=== PATIENT | male | born 1955 | race Caucasian/White ===

== ENCOUNTER 2023-06-09 11:37 | Outpatient (CLI) | payer MEDICARE, SELFPAY ==
--- NOTE | 2023-06-09 12:29 | ECG_ITS ---
Measurements Intervals [place] Rate: 64 P: 96 VA: 243 QRS: -26 QRSD: 100 T: 32 QT: 385 QTc: 398 Interpretive Statements SINUS RHYTHM WITH SINUS ARRHYTHMIA WITH FIRST DEGREE AV BLOCK BORDERLINE LEFT AXIS DEVIATION [QRS AXIS < -20] BORDERLINE ECG NO PREVIOUS ECG AVAILABLE FOR COMPARISON Electronically Signed On 06-09-2023 15:23:51 SCREENING TECHNICIAN by Cordell Perkins M.D.
[2023-06-09 13:04] LABS: Basophils Percent Auto 0.6 % (0.2-1.2); Eosinophils Absolute Auto 0.2 K/mm3 (0-0.3); Eosinophils Percent Auto 3.8 % (0-4.4); Hematocrit 43.7 % (42.0-52.0); Hemoglobin 14.7 g/dL (14.0-18.0); Immature Granulocyte Absolute 0.02 K/mm3 (0.00-0.031); Immature Granulocyte Percent A 0.3 % (0-0.5); Lymphocytes Absolute Auto 1.04 K/mm3 (0.9-3.2); Lymphocytes Percent Auto 16.4 % (18.3-44.2); Mean Corpuscular HGB Conc 33.6 g/dl (32-36); Mean Corpuscular Hemoglobin 31.6 pg (26-34); Mean Platelet Volume 10.6 fl (7.4-10.4); Monocytes Absolute Auto 0.4 K/mm3 (0.1-0.6); Monocytes Percent Auto 6.2 % (2.6-8.5); Neutrophils Absolute Auto 4.6 K/mm3 (1.3-6.7); Neutrophils Percent Auto 72.7 % (45.5-73.1); Platelet Count Result 229 k/mm3 (150-375); Red Blood Count 4.65 M/mm3 (4.6-6.20); Red Cell Distribution Width 12.7 % (11.5-14.5); White Blood Count 6.3 K/mm3 (4.5-10.0)
[2023-06-09 13:13] LABS: Urine Cotinine NEGATIVE
[2023-06-09 13:15] LABS: Estimated Glomerular Filt Rate > 60; Glucose 124 mg/dL (65-110)
[2023-06-09 13:33] LABS: Hemoglobin A1C 5.8 % (<5.7)
== END 2023-06-09 11:38 | disposition home or self-care (01) ==
LOC: ANHSURGERY 11:45
PROVIDERS: Visit Provider Orthopaedic Surgery
DX: Z01.818 Encounter for other preprocedural examination (principal); M16.11 Unilateral primary osteoarthritis, right hip; I44.0 Atrioventricular block, first degree; R93.1 Abnormal findings on diagnostic imaging of heart and coronary circulation
CPT/HCPCS: 80307; 82040; 82565; 82947; 83036; 85025; 86850; 86900; 86901; 87081; 93005

== ENCOUNTER 2023-06-22 01:01 | Day surgery (SDC) | payer MEDICARE, SELFPAY ==
[2023-06-09 11:47] VITALS: BP 150/88; PULSE 66; RESP 20; TEMP 36.9; O2SAT 98; BMI 29.8
--- NOTE | 2023-06-09 11:47 | PC.NURSE ---
PRE-OP INSTRUCTIONS, PLEASE READ CAREFULLY Report to the Outpatient Waiting Room, entrance under the green pavilion located off [facility], at time _0800_ on date _06/22/23_. Planned Procedure Time: _1000_. PACK A SMALL OVERNIGHT BAG AND LEAVE IN THE CAR ALONG WITH YOUR WALKER Time changes happen often and if your time is changed the preop area will call you the afternoon before. - You and your visitor will be asked to self-screen and do not enter if you have any COVID symptoms. - A mask is optional within the hospital at this time. -VISITING HOURS 8AM-8PM Patients may have clear liquids (water, carbonated beverages, clear teas, apple juice) until 3 hours prior to surgery (0700 AM) with a maximum of 20 ounces. - No food from midnight until time of surgery Take the following medications with a SIP of water the morning of surgery: __NONE___ DO NOT STOP ANY OF YOUR OTHER PRESCRIPTION MEDICATIONS PRIOR TO SURGERY ?EXCEPT THE FOLLOWING Medications to discontinue per physician ____NONE____, Date to take last dose Please no make-up, nail mosotho, hairspray, perfume, deodorant, or body powder the day of surgery. No jewelry (including any body piercings) or valuables the day of surgery, leave them at home. Please take a shower or bath the night before, or the morning of, surgery with an antibacterial soap. Wear comfortable, loose fitting clothing. - Jewelry must be removed prior to entering the operating room. Rings and piercings that are not removed may be cut off. - The hospital will not accept responsibility for valuables. - Please leave all valuables, including medications, at home the day of surgery. If you are going home after surgery, a licensed solid waste truck driver must drive you home. - NO public transportation without another adult if you receive anesthesia. - We recommend that an adult stay with you for 24 hours following discharge. - We also recommend that you do not drive, make important decision, drink alcoholic beverages, or take any drugs that were not prescribed by your health care provider for at least 24 hours after your discharge time. Follow any additional instructions given to you from your surgeon. If you or anyone in your household have experienced Covid symptoms in the past week, please notify your surgeon or the nurse liaison at the phone number below for possible testing. Instructions given to _PATIENT_and asked if any additional questions and then verbalized understanding. Patient advised to call surgeon office or pre surgery nurse liaison [phone] if any additional questions.
--- NOTE | 2023-06-20 13:32 | P.HP_ITS ---
H&P: HPI History of Present Illness Date/Time: 06/20/23 13:32 Chief Complaint: Patient's hip pain right. He would like to proceed with a right hip arthroplasty. Narrative: Patient has mild arthritis of his right hip. He has failed conservative treatment today. He has had both knees done by me previously and has done well with them. He has a hard time getting around at this point. Walks with an antalgic gait. Review of Systems Musculoskeletal: Musculoskeletal: Reports arthralgias and Reports joint sw [facility] Surgical History Surgical History History of hernia repair History of knee replacement bilateral- Dr Torres History of rotator cuff surgery right x2 left History of surgery on lower extremity quad muscle repair- bilateral Social History Social History (Updated 05/22/23 @ 09:29 by Kari Stringer [facility]) Smoking status: Never smoker Second hand tobacco smoke exposure: No Additional smoking assessment comments: PT DENEIS ALL FORMS OF TOBACCO USE Alcohol intake: current Drinks per week: 3 Alcohol use details: occasionally Substance use: never Substance use type: does not use Lack of Transportation: No Lack of Food: Never True Current Housing: I Have Housing Concerned About Future Housing: No Difficulty Paying Gas/Electric Bills: No Difficulty Paying for Meds: No Currently Unemployed: Decline to Answer Education: Bachelor's Degree Difficulty w/ Childcare or Family Care: No Living arrangements: with family Occupation/Education: retired Spiritual care concerns: No Meds Home Medications and Allergies Home Medications Medication Instructions Recorded Confirmed Type rivaroxaban 10 mg tablet (Xarelto) 10 mg PO DAILY PE prophylaxis s/p 06/20/23 Rx joint replacement surgery #14 tabs Allergies Allergy/AdvReac Type Severity Reaction Status Date / Time amoxicillin [From Amoxil] AdvReac Unknown upset Verified 06/09/23 12:01 stomach Exam Narrative: On exam he has internal rotation of his hips 0 external rotation about 30 he has got a positive Stinchfield test grinding crepitus and pain with manipulation. He walks with an antalgic gait. Neurologically he is grossly intact. He has well-healed surgical scars on both knees. Eyes: General: appearance normal, both eyes and all related structures Neck: Neck: supple Resp: Effort & Inspection: normal respiratory effort Cardio: Rate: regular rate Rhythm: regular rhythm Assessment and Plan Assessment and plan (1) Osteoarthritis of right hip: Code(s): M16.11 - Unilateral primary osteoarthritis, right hip Status: Acute Assessment and Plan: Patient has arthritis right greater than left hip. He has had previous knee replacements done, which have donee well for him. He initially came in with question painful right knee, but the pain was really was from his hip. He has [id number] arthritis of his hip and has failed conservative treatment. He would like to proceed with hip replacement surgery I discussed this with him at length risks benefits limitations and alternatives in detail. Will proceed per his request.
[2023-06-22] VITALS (19 sets, daily range): BP systolic 97–153; BP diastolic 50–81; PULSE 65–88; RESP 12–21; TEMP 36.5–36.9; O2SAT 94–100
--- NOTE | ~2023-06-22 | XR_ITS ---
EXAMINATION: XR surgery orthopedic DATE: 06/22/2023 10:20 INDICATION: Intraoperative evaluation during right total hip arthroplasty TECHNIQUE: Frontal view of the right hip was obtained. COMPARISON: 05/22/2023 FINDINGS: Intraoperative image during a right total hip arthroplasty demonstrate placement of an acetabular com ponent which appears in near anatomic alignment on the single image provided. A femoral broach is in place on the initial image with the proximal tip centered over the acetabular component. This been r eplaced with a noncemented femoral component on the subsequent images with the arthroplasty appearing in near anatomic alignment. The acetabular component is affixed with at least 2 screws. Portions of the pelvis are obscured by a bolster. No fractures in the visualized bones. Expected lucent soft tiss ue gas at the operative bed. Moderate osteoarthritis at the contralateral left hip. IMPRESSION: 1. Expected appearance during right total hip arthroplasty. Reviewed, dictated and finalized at location A. ENT REPRESENTATIVE
--- NOTE | 2023-06-22 06:57 | WPDHPUPDATE1 ---
History and Physical Update Update Date/Time: 06/22/23 06:57 History and Physical has been reviewed, including an updated exam of the patient. There are NO changes in the patient's condition. Risks, benefits, and alternatives have been discussed and questions answered. Patient agrees to proceed with procedure.
[2023-06-22] MEDS: ACETAMINOPHEN 500 MG TABLET 1000 MG PO (07:51)
--- NOTE | 2023-06-22 08:05 | WPDANESEPPF ---
Anes - Initial Pre Proc Eval Procedure: Operation Date: 06/22/23 10:00 Proposed Procedures p Right Total Hip Arthroplasty - Anshu Torres MD Date/Time: 06/22/23 08:05 Surgeon: Anshu Torres MD Pre Op Diagnosis: right hip OA Patient Data Age: 68 Gender: M Height: 1.95 m Weight: 113.4 kg Last Vital Signs Temp 36.9 C 06/09/23 11:47 Pulse 66 06/09/23 11:47 Resp 20 06/09/23 11:47 BP 150/88 H 06/09/23 11:47 Pulse Ox 98 06/09/23 11:47 O2 Del Method Room Air 06/09/23 11:47 Allergies Allergy/AdvReac Type Severity Reaction Status Date / Time amoxicillin [From Amoxil] AdvReac Unknown upset Verified 06/09/23 12:01 stomach Home Medications Medication Instructions Recorded Confirmed Type rivaroxaban 10 mg tablet (Xarelto) 10 mg PO DAILY PE prophylaxis s/p 06/20/23 Rx joint replacement surgery #14 tabs Patient hx anesthesia problems: none Family hx anesthesia problems: none Results Review: All pre-operative results and documents have been reviewed as part of the pre-operative evaluation. [facility] Past Medical History Medical History (Updated 06/22/23 @ 08:05 by Frank Paiz MD) TI (obstructive sleep apnea) Overweight Surgical History Surgical History History of hernia repair History of knee replacement bilateral- Dr Torres History of rotator cuff surgery right x2 left History of surgery on lower extremity quad muscle repair- bilateral Social History Social History Smoking status: Never smoker Second hand tobacco smoke exposure: No Additional smoking assessment comments: PT DENEIS ALL FORMS OF TOBACCO USE Alcohol intake: current Drinks per week: 3 Alcohol use details: occasionally Substance use: never Substance use type: does not use Lack of Transportation: No Lack of Food: Never True Current Housing: I Have Housing Concerned About Future Housing: No Difficulty Paying Gas/Electric Bills: No Difficulty Paying for Meds: No Currently Unemployed: Decline to Answer Education: Bachelor's Degree Difficulty w/ Childcare or Family Care: No Living arrangements: with family Occupation/Education: retired Spiritual care concerns: No Anes - Eval Final PreProcedure Day of Procedure 06/22/23 08:05 Patient weight: overweight Heart: regular rate and rhythm Lungs: clear to auscultation Airway: Mallampati scale class II Neurological: alert and oriented Last oral intake: >/= 8 hours ASA classification: III Emergent: no Anesthetic plan: proceed Anesthesia type and monitoring: general ETT and standard monitoring Results Review: All pre-operative results and documents have been reviewed as part of the pre-operative evaluation. Informed Consent: The patient's anesthetic plan and its attendant risks and benefits were discussed with the patient/family/POA. Questions were solicited and answers provided to the satisfaction of the patient/family/POA.
[2023-06-22] MEDS: LACTATED RINGERS 1,000 ML 30 ML IV CONT ×3 (08:08→13:19)
[2023-06-22] MEDS: VANCOMYCIN 1,750 MG/NS 500 ML 1,750 MG/500 ML BAG 250 MG IVPB (08:08)
[2023-06-22] MEDS: TRANEXAMIC ACID 1,000MG/ISO100 1,000 MG/100 ML BAG 200 MG IVPB (08:09)
[2023-06-22] MEDS: ceFAZolin 2 GM/D5W 50 ML 2 GM/50 ML BAG IVPB ×2 (08:21→16:59)
[2023-06-22] MEDS: BUPIVACAINE/EPINEPHRINE 0.5% 50 ML VIAL 30 ML INFILTRATE (09:08)
--- NOTE | 2023-06-22 10:15 | P.OP_ITS ---
Procedure Note - Detailed Date of Procedure 06/22/23 Pre-op Diagnosis Right Hip Osteoarthritis Post-op Diagnosis Same Procedure Performed RIGHT total hip arthroplasty Surgeon Anshu Torres MD Anesthesia General Indications Pain and Arthritis Description of Procedure Patient was brought to the operating room #8 and an anesthetic was administered. The patient was placed with the RIGHT side up and steriley prepped and draped in the usual manner. Longitudinal incision was done, dissection carried down to the fascia. A Hardinge type approach was used and the femoral head was dislocated anteriorly. Femoral head was removed a finger breath above the lesse r trochanter. The acetabulum was serially reamed to accept a 56 component. This was impacted into place and secured with 2 25mm screws. A high wall liner was placed. The femur was reamed and broached to accept a 15 component which was impacted into place. A plus 6 head and neck were placed and the hip was put through full range of motion. The hip was noted to be stable. The wounds were then closed in a layered fashion using #5 ethibond, 1 vicryl, 2-0 vicryl and pedro. Patient left the operating room in satisfactory condition. Implants Biomet Stem Brian 3 hole cup Estimated Blood Loss 600 Drains No Packing No Pathology None sent Complications No immediate complications Condition Stable Disposition PACU [facility] Billing Surgery - Charge Forward: Surgery Billing (RIGHT Total Hip)
[2023-06-22] MEDS: fentaNYL CITRATE INJ (*CRX) 100 MCG/2 ML VIAL 25 MCG IV PUSH ×8 (11:16→12:29)
[2023-06-22] MEDS: HYDROmorphone HCL INJ (*CRX) 1 MG/ML SYR 0.5 MG IV PUSH ×3 (12:38→13:05)
[2023-06-22 14:02] LABS: Hematocrit 41.5 % (42.0-52.0); Hemoglobin 13.5 g/dL (14.0-18.0)
[2023-06-22] MEDS: HYDROcodone/acetaminophen (*CRX) 5-325 MG TABLET 2 TAB PO ×2 (14:23→20:09)
[2023-06-22] MEDS: DEXTROSE 5%/0.45% SOD CHL 1,000 ML 80 ML IV CONT (14:25)
--- NOTE | 2023-06-22 15:05 | ADMGEN ---
This patient, Polo Alvarez, was admitted to [facility] Surg Room 306-01. Report received from SAMPSON Mello. Patient/family oriented to hospital policies and general routines including ID bracelet, bed and alarms, visiting hours, pain management, procedures, bathroom and other care routines, personal items, smoking policy, room service/diet, and visiting hours. Information on how to activate the Rapid Response Team has been discussed. Patient/Family are encouraged to report perceived risks to care and to ask questions if they do not understand what they are told or what they should do.
[2023-06-22] MEDS: SENNA/DOCUSATE SODIUM TABLET 2 TAB PO (16:59)
[2023-06-22] MEDS: RIVAROXABAN 10 MG TABLET PO (16:59)
[2023-06-22] MEDS: CYCLOBENZAPRINE HCL 10 MG TABLET PO (17:09)
--- NOTE | 2023-06-22 17:23 | PM.IMCN ---
Assessment and Plan Assessment and plan (1) Osteoarthritis of right hip: Code(s): M16.11 - Unilateral primary osteoarthritis, right hip Status: Acute Assessment and Plan: S/P right total hip arthroplasty on 06/22/2023, primary management through orthopedic team, anticipated discharge tomorrow 06/23. up to chair apply gel pads hip precautions in place use IS neurovasc checks - see order for intervals SCDs resume diet pain management zofran PRN for nausea monitor labs in AM - CBC and BMP bowel regimen: docusate/senna, polyethylene glycol starting Xarelto Plan Home Meds/Chronic Conditions - none Diet: Regular GI Prophylaxis: Famotidine DVT Prophylaxis: SCDs, Xarelto Lines: pIV Code Status: Full Code HPI Date of Consult Consult date: 06/22/23 Requesting Physician: Anshu Torres MD Primary Care Provider: TRAILER TECHNICIAN PHYSICIAN Consult Narrative Reason for consult: Medical Managment Narrative: Polo Alvarez is a 68 year old male who presented here for a right total hip arthroplasty. Patient has previously had bilateral knee replacements. Despite these interventions, has continue to walk with a altered gait due to right hip pain. Pain has been interfering with mobility so patient elected to move forward with surgical management. Had right total hip arthroplasty performed on 06/22/2023 by Brian BAUTISTA. no immediate postop complications identified. Did report brief period of nausea that has since resolved and is tolerating dinner. Reports mild achiness to his hip. Reports no past medical history or daily medication use. Has had previous surgeries: Hernia repair, bilateral knee replacements, rotator cuff (R x2, L x1) and quadriceps muscle repair due to a fall (initially injured 1 side and had repair, then fell 7 years later and had other side tear requiring surgical repair). No other comments or concerns at this time. Review of Systems Review of Systems: All systems reviewed & are unremarkable except as noted in HPI and below PMFSH Past Medical History Medical History TI (obstructive sleep apnea) Overweight Surgical History Surgical History History of hernia repair History of knee replacement bilateral- Dr Torres History of rotator cuff surgery right x2 left History of surgery on lower extremity quad muscle repair- bilateral Social History Social History Smoking status: Never smoker Second hand tobacco smoke exposure: No Additional smoking assessment comments: PT DENEIS ALL FORMS OF TOBACCO USE Alcohol intake: current Drinks per week: 1 Alcohol use details: occasionally Substance use: never Substance use type: does not use Do You Feel Safe in your Home?: Yes Lack of Transportation: No Lack of Food: Never True Current Housing: I Have Housing Concerned About Future Housing: No Difficulty Paying Gas/Electric Bills: No Difficulty Paying for Meds: No Currently Unemployed: No Education: Don't Know Difficulty w/ Childcare or Family Care: No Living arrangements: with family Occupation/Education: retired Spiritual care concerns: No Meds Home Medications and Allergies Home Medications Medication Instructions Recorded Confirmed Type rivaroxaban 10 mg tablet (Xarelto) 10 mg PO DAILY PE prophylaxis s/p 06/20/23 Rx joint replacement surgery #14 tabs Allergies Allergy/AdvReac Type Severity Reaction Status Date / Time amoxicillin [From Amoxil] AdvReac Unknown upset Verified 06/22/23 08:12 stomach Vital Signs Vital Signs - 24 hr 06/22/23 08:12 06/22/23 10:57 06/22/23 11:10 Temperature 97.8 F 98.1 F Pulse Rate 73 78 65 Respiratory Rate 16 16 20 Blood Pressure 153/81 H 101/66 137/77 Pulse Oximetry 100 98 100 Oxygen Delivery Room Air S
[2023-06-22] MEDS: FAMOTIDINE 20 MG TABLET PO (20:09)
[2023-06-23] MEDS: CYCLOBENZAPRINE HCL 10 MG TABLET PO ×2 (00:26→08:31)
[2023-06-23] MEDS: ceFAZolin 2 GM/D5W 50 ML 2 GM/50 ML BAG IVPB ×2 (00:27→08:33)
[2023-06-23] MEDS: HYDROcodone/acetaminophen (*CRX) 5-325 MG TABLET 2 TAB PO (02:02)
[2023-06-23 06:29] LABS: Basophils Percent Auto 0.2 % (0.2-1.2); Eosinophils Percent Auto 0.2 % (0-4.4); Hematocrit 34.5 % (42.0-52.0); Hemoglobin 11.6 g/dL (14.0-18.0); Immature Granulocyte Absolute 0.04 K/mm3 (0.00-0.031); Immature Granulocyte Percent A 0.5 % (0-0.5); Lymphocytes Absolute Auto 1.14 K/mm3 (0.9-3.2); Lymphocytes Percent Auto 13.9 % (18.3-44.2); Mean Corpuscular HGB Conc 33.6 g/dl (32-36); Mean Corpuscular Hemoglobin 31.8 pg (26-34); Mean Corpuscular Volume 94.5 fl (80-100); Mean Platelet Volume 10.3 fl (7.4-10.4); Monocytes Absolute Auto 0.8 K/mm3 (0.1-0.6); Monocytes Percent Auto 9.1 % (2.6-8.5); Neutrophils Absolute Auto 6.3 K/mm3 (1.3-6.7); Neutrophils Percent Auto 76.1 % (45.5-73.1); Platelet Count Result 203 k/mm3 (150-375); Red Blood Count 3.65 M/mm3 (4.6-6.20); Red Cell Distribution Width 12.7 % (11.5-14.5); White Blood Count 8.2 K/mm3 (4.5-10.0)
[2023-06-23 06:39] LABS: Anion Gap 5 mmol/L (8-16); Blood Urea Nitrogen 15 mg/dL (9-20); Calcium 9.2 mg/dL (8.4-10.2); Carbon Dioxide 27 mmol/L (22-30); Chloride 105 mmol/L (98-107); Estimated CRCL calculation 107 ml/min; Estimated Glomerular Filt Rate > 60; Glucose 110 mg/dL (65-110); Potassium 3.7 mmol/L (3.4-5.0); Sodium 137 mmol/L (137-145)
[2023-06-23 07:55] VITALS: BP 158/68; PULSE 80; RESP 21; TEMP 36.2; O2SAT 100
--- NOTE | 2023-06-23 08:18 | WPDANESPN ---
Anes - Prog Note Post-Op Date/Time: 06/23/23 08:18 Cardiovascular status: normal Respiratory status: normal Airway patency: baseline Mental status: baseline Post-Op hydration status: normal Vital Signs: Last Vital Signs Temp 36.2 C L 06/23/23 07:55 Pulse 80 06/23/23 07:55 Resp 21 H 06/23/23 07:55 BP 158/68 H 06/23/23 07:55 Pulse Ox 100 06/23/23 07:55 O2 Del Method Room Air 06/22/23 15:50 O2 Flow Rate 8 06/22/23 11:25 Pain Score (VAS): 07/29 I/O: Intake & Output 06/22/23 06/23/23 06/23/23 23:59 07:59 15:59 Intake Total 822 700 240 Output Total 1350 900 Balance -528 -200 240 Laboratory Tests 06/23/23 05:28 06/23/23 05:28 06/22/23 06/23/23 13:56 05:28 WBC 8.2 RBC 3.65 L Hgb 13.5 L 11.6 L Hct 41.5 L 34.5 L MCV 94.5 MCH 31.8 MCHC 33.6 RDW 12.7 Plt Count 203 MPV 10.3 Immature Gran % (Auto) 0.5 Neut % (Auto) 76.1 H Lymph % (Auto) 13.9 L [place] % (Auto) 9.1 H Eos % (Auto) 0.2 Baso % (Auto) 0.2 Lymph # (Auto) 1.14 [place] # (Auto) 0.8 H Eos # (Auto) 0.0 Baso # (Auto) 0.0 Abs Immat Gran (auto) 0.04 H Absolute Neuts (auto) 6.3 Absolute Nucleated RBC 0.0 Nucleated RBC % 0.0 Sodium 137 Potassium 3.7 Chloride 105 Carbon Dioxide 27 Anion Gap 5 L BUN 15 Creatinine 0.70 Estim Creat Clear Calc 107 Estimated GFR > 60 Glucose 110 Calcium 9.2 Post-procedural complaints: none Patient Feedback: Patient satisfied with anesthetic care.
[2023-06-23] MEDS: FAMOTIDINE 20 MG TABLET PO (08:31)
[2023-06-23] MEDS: SENNA/DOCUSATE SODIUM TABLET 2 TAB PO (08:31)
[2023-06-23] MEDS: HYDROcodone/acetaminophen (*CRX) 7.5-325 MG TABLET 2 TAB PO ×2 (08:32→13:22)
[2023-06-23] MEDS: CELECOXIB 200 MG CAPSULE PO (08:32)
--- NOTE | 2023-06-23 11:19 | PM.IMCN ---
Assessment and Plan Assessment and plan (1) Osteoarthritis of right hip: Code(s): M16.11 - Unilateral primary osteoarthritis, right hip Status: Acute Assessment and Plan: S/P right total hip arthroplasty on 06/22/2023, primary management through orthopedic team, anticipated discharge tomorrow 06/23. up to chair apply gel pads hip precautions in place use IS neurovasc checks - see order for intervals SCDs resume diet pain management zofran PRN for nausea monitor labs in AM - CBC and BMP bowel regimen: docusate/senna, polyethylene glycol starting Xarelto Plan Home Meds/Chronic Conditions - none Diet: Regular GI Prophylaxis: Famotidine DVT Prophylaxis: SCDs, Xarelto Lines: pIV Code Status: Full Code HPI Date of Consult Consult date: 06/23/23 Requesting Physician: Anshu Torres MD Primary Care Provider: SEWING MACHINE BOBBIN WINDER PHYSICIAN Consult Narrative Reason for consult: Medical management Narrative: 06/23/2023: Patient reports pain well controlled but having episodes of nausea no vomiting. Patient afebrile overnight with no complaints of CP or SOB. Site clean, no erythema, swelling, or drainage pedro in place. Patient tolerating oral intake and working well with PT. Will give zofran for nausea and monitor for improvement, plan is discharge home today. Review of Systems Review of Systems: All systems reviewed & are unremarkable except as noted in HPI and below PMFSH Past Medical History Medical History TI (obstructive sleep apnea) Overweight Surgical History Surgical History History of hernia repair History of knee replacement bilateral- Dr Torres History of rotator cuff surgery right x2 left History of surgery on lower extremity quad muscle repair- bilateral Social History Social History Smoking status: Never smoker Second hand tobacco smoke exposure: No Additional smoking assessment comments: PT DENEIS ALL FORMS OF TOBACCO USE Alcohol intake: current Drinks per week: 1 Alcohol use details: occasionally Substance use: never Substance use type: does not use Do You Feel Safe in your Home?: Yes Lack of Transportation: No Lack of Food: Never True Current Housing: I Have Housing Concerned About Future Housing: No Difficulty Paying Gas/Electric Bills: No Difficulty Paying for Meds: No Currently Unemployed: No Education: Don't Know Difficulty w/ Childcare or Family Care: No Living arrangements: with family Occupation/Education: retired Spiritual care concerns: No Meds Home Medications and Allergies Home Medications Medication Instructions Recorded Confirmed Type rivaroxaban 10 mg tablet (Xarelto) 10 mg PO DAILY PE prophylaxis s/p 06/20/23 Rx joint replacement surgery #14 tabs Allergies Allergy/AdvReac Type Severity Reaction Status Date / Time amoxicillin [From Amoxil] AdvReac Unknown upset Verified 06/22/23 08:12 stomach Vital Signs Vital Signs - 24 hr 06/22/23 11:25 06/22/23 11:40 06/22/23 11:55 Temperature Pulse Rate 70 77 78 Respiratory Rate 20 18 18 Blood Pressure 125/78 133/74 142/77 H Pulse Oximetry 100 95 97 Oxygen Delivery Simple Face Mask Room Air Room Air Oxygen Flow Rate 8 06/22/23 12:10 06/22/23 12:25 06/22/23 12:40 Temperature Pulse Rate 74 76 68 Respiratory Rate 20 20 12 Blood Pressure 125/73 124/73 116/62 Pulse Oximetry 99 97 99 Oxygen Delivery Room Air Room Air Room Air Oxygen Flow Rate 06/22/23 12:55 06/22/23 13:10 06/22/23 13:25 Temperature Pulse Rate 67 85 79 Respiratory Rate 12 18 20 Blood Pressure 117/77 123/76 117/77 Pulse Oximetry 95 97 94 Oxygen Delivery Room Air Room Air Room Air Oxygen Flow Rate 06/22/23 13:35 06/22/23 13:55 06/22/23 14:10 Temperature 97.8 F
--- NOTE | 2023-06-23 11:43 | PM.IMPN ---
Progress Note: A&P Assessment and Plan (1) Osteoarthritis of right hip: Code(s): M16.11 - Unilateral primary osteoarthritis, right hip Status: Acute Plan Right total hip arthroplasty -06/22/2023/Postop day 2 -up to chair -hip precautions in place -use IS -neurovasc checks - see order for intervals -SCDs -resume diet -pain management -zofran PRN for nausea -monitor labs in AM - CBC and BMP -bowel regimen: docusate/senna, polyethylene glycol -starting Xarelto DVT Proph -PT -Dressing changes per ortho Time Spent With Patient Time with patient: 15 - 25 minutes Subjective Date/time seen: 06/23/23 11:43 Interval history: F/U medical consult for Mr. Alvarez a 68 year old male post-op day 2 or RT hip arthroplasty 06/23/2023: Patient reports pain well controlled but having episodes of nausea no vomiting. Patient afebrile overnight with no complaints of CP or SOB. Site clean, no erythema, swelling, or drainage pedro in place. Patient tolerating oral intake and working well with PT. Will give zofran for nausea and monitor for improvement, plan is discharge home today. Review of Systems Review of Systems: All systems reviewed & are unremarkable except as noted in HPI and below Exam Const: General: comfortable and no acute distress HENMT: Face/Nose/Sinus: Normal nares present Mouth: Yes moist mucous membranes Eyes: General: appearance normal, both eyes and all related structures Sclera: sclerae normal Pupils: Equal, round and reactive pupils present EOM: EOMs intact bilaterally Neck: Neck: supple Resp: Effort & Inspection: normal respiratory effort Auscultation: clear to auscultation bilaterally Cardio: Rate: regular rate Rhythm: regular rhythm GI: Auscultation: normal bowel sounds Skin: General skin exam: normal color and no rashes or lesions noted Other: Postoperative wound to right hip with dressing in place, remains clean and intact.? No drainage, underlying ecchymosis, or swelling. Neuro: Cranial nerves: Yes Equal, round and reactive pupils present Speech: normal speech Motor exam (neuro): 5/5 motor strength present throughout Sensory Exam: normal sensation Extrem: General: normal to inspection Psych: Mental Status: mental status grossly normal Affect: normal affect Objective Data Vital Signs Vital Signs: Vital Signs - 24 hr 06/22/23 11:55 06/22/23 12:10 06/22/23 12:25 Temperature Pulse Rate 78 74 76 Respiratory Rate 18 20 20 Blood Pressure 142/77 H 125/73 124/73 Pulse Oximetry 97 99 97 Oxygen Delivery Room Air Room Air Room Air 06/22/23 12:40 06/22/23 12:55 06/22/23 13:10 Temperature Pulse Rate 68 67 85 Respiratory Rate 12 12 18 Blood Pressure 116/62 117/77 123/76 Pulse Oximetry 99 95 97 Oxygen Delivery Room Air Room Air Room Air 06/22/23 13:25 06/22/23 13:35 06/22/23 13:55 Temperature 97.8 F Pulse Rate 79 76 78 Respiratory Rate 20 18 20 Blood Pressure 117/77 123/76 134/79 Pulse Oximetry 94 94 98 Oxygen Delivery Room Air Room Air 06/22/23 14:10 06/22/23 14:40 06/22/23 15:50 Temperature 97.7 F 97.7 F Pulse Rate 75 84 Respiratory Rate 20 18 Blood Pressure 121/74 141/75 H Pulse Oximetry 99 100 Oxygen Delivery Room Air 06/22/23 15:26 06/22/23 19:45 06/22/23 23:26 Temperature 97.9 F 98.4 F 97.8 F Pulse Rate 83 88 69 Respiratory Rate 18 18 21 H Blood Pressure 97/61 L 123/66 112/50 L Pulse Oximetry 100 96 100 Oxygen Delivery 06/23/23 07:55 Temperature 97.2 F L Pulse Rate 80 Respiratory Rate 21 H Blood Pressure 158/68 H Pulse Oximetry 100 Oxygen Delivery Intake/Output Intake/Output: Intake & Output 06/20/23 06/21/23 06/22/23 06/23/23 23:59 23:59 23:59 23:59 Intake Total 2744 990 Output Total 1350 900 Balance 1394 90 Meds/Results Medications: Active Medications Generic Name Dose Route Start Last Admin Trade Name Freq PRN Reason Stop Dose Admin Hydrocodone Bitart/Acetaminophen 1 tab 01
--- NOTE | 2023-06-23 13:52 | PM.PNORT ---
Progress Note: A&P Assessment and Plan (1) Osteoarthritis of right hip: Code(s): M16.11 - Unilateral primary osteoarthritis, right hip Status: Acute Assessment and Plan: Patient is status post total hip arthroplasty right. He is doing well at this point. The pain is under control. I think he can be dismissed this time. He has any changes or problems he will call. Anticipate follow-up 10 to 14 days for sutures out. (2) History of total right hip replacement: Code(s): Z96.641 - Presence of right artificial hip joint Status: Acute Subjective Subjective Date/Time Seen: 06/23/23 13:52 Post Op day: 1 Principal diagnosis: Status post right total hip arthroplasty for hip osteoarthritis Interval history: Patient is doing well overall had some issues with pain control but that is taking care of at this point. Review of Systems Musculoskeletal: Musculoskeletal: Reports arthralgias and Reports joint swelling Exam Narrative: On exam his dressings intact neurologically he is intact wiggles his toes well. Moves his hip without too much difficulty. Objective Data Vital Signs Vital Signs: Vital Signs - 24 hr 06/22/23 13:55 06/22/23 14:10 06/22/23 14:40 Temperature 97.8 F 97.7 F 97.7 F Pulse Rate 78 75 84 Respiratory Rate 20 20 18 Blood Pressure 134/79 121/74 141/75 H Pulse Oximetry 98 99 100 Oxygen Delivery 06/22/23 15:50 06/22/23 15:26 06/22/23 19:45 Temperature 97.9 F 98.4 F Pulse Rate 83 88 Respiratory Rate 18 18 Blood Pressure 97/61 L 123/66 Pulse Oximetry 100 96 Oxygen Delivery Room Air 06/22/23 23:26 06/23/23 07:55 Temperature 97.8 F 97.2 F L Pulse Rate 69 80 Respiratory Rate 21 H 21 H Blood Pressure 112/50 L 158/68 H Pulse Oximetry 100 100 Oxygen Delivery Intake/Output Intake/Output: Intake & Output 06/20/23 06/21/23 06/22/23 06/23/23 23:59 23:59 23:59 23:59 Intake Total 2744 1210 Output Total 1350 900 Balance 1394 310 Meds/Results Medications: Active Medications Generic Name Dose Route Start Last Admin Trade Name Freq PRN Reason Stop Dose Admin Hydrocodone Bitart/Acetaminophen 1 tab 06/22/23 13:41 Hydrocodone/Acetaminophen (*Crx) 5-325 Mg Tablet PO Q3H PRN Pain Rated 4-6 Hydrocodone Bitart/Acetaminophen 2 tab 06/23/23 08:07 06/23/23 13:22 Hydrocodone/Acetaminophen (*Crx) 7.5-325 Mg Tablet PO 2 tab Q3HR PRN Administration Pain Rated 7-10 Celecoxib 200 mg 06/23/23 09:00 06/23/23 08:32 Celecoxib 200 Mg Capsule PO 200 mg DAILY NIKHIL Administration Cyclobenzaprine HCl 10 mg 06/22/23 13:41 06/23/23 08:31 Cyclobenzaprine Hcl 10 Mg Tablet PO 10 mg Q8H PRN Administration Muscle Spasm Famotidine 20 mg 06/22/23 21:00 06/23/23 08:31 Famotidine 20 Mg Tablet PO 20 mg Q12HR NIKHIL Administration Naloxone HCl 0.1 mg 06/22/23 13:41 Naloxone Hcl 0.4 Mg/Ml Vial IV PUSH Q2M PRN Opiate Reversal Ondansetron HCl 4 mg 06/23/23 11:17 Ondansetron Inj 4 Mg/2 Ml Vial IV PUSH Q4H PRN Nausea And Vomiting Polyethylene Glycol 17 gm 06/23/23 09:00 06/23/23 08:41 Polyethylene Glycol 3350 17 Gm Powd.Pack PO Not Given QAM [facility] Rivaroxaban 10 mg 06/22/23 17:00 06/22/23 16:59 Rivaroxaban 10 Mg Tablet PO 10 mg DAILY@1700 [facility] Administration Senna/Docusate Sodium 2 tab 06/22/23 17:00 06/23/23 08:31 Senna/Docusate Sodium Tablet PO 2 tab BID NIKHIL Administration Radiology Results: ITS Impressions Intraoperative X-Ray 06/22/23 10:52 IMPRESSION: 1. Expected appearance during right total hip arthroplasty. Labs Labs: Laboratory Results - last 24 hr 06/22/23 06/23/23 13:56 05:28 WBC 8.2 RBC 3.65 L Hgb 13.5 L 11.6 L Hct 41.5 L 34.5 L MCV 94.5 MCH 31.8 MCHC 33.6 RDW 12.7 Plt Count 203 MPV 10.3 Immature Gran % (Auto) 0.5 Neut % (Auto) 76.1 H Lymph % (Auto) 13.9 L [place]
--- NOTE | 2023-06-23 13:54 | PM.DS ---
DS: Admitting Diagnosis Discharge Date 06/23/2022 Admitting Diagnosis Osteoarthritis right hip DS: Discharge Diagnosis Discharge Diagnosis Plan Right total hip arthroplasty for hip osteoarthritis DS: Summary Hospital Course Hospital Course: Patient underwent total hip arthroplasty on the right. He had some issues pain control which resolved now. We will dismiss him home. Time Spent with Patient Time attestation: Total time spent providing and/or coordinating discharge services: Exam Narrative: Patient can wiggle his toes. Neurologically appears intact. Dressing is intact. Const: General: comfortable Neck: Neck: supple Resp: Effort & Inspection: normal respiratory effort Cardio: Rate: regular rate Rhythm: regular rhythm DS: Data Data Completed and Pending Labs on day of discharge: Labs from last 24 hours 06/23/23 06/22/23 05:28 13:56 WBC 8.2 RBC 3.65 L Hgb 11.6 L 13.5 L Hct 34.5 L 41.5 L MCV 94.5 MCH 31.8 MCHC 33.6 RDW 12.7 Plt Count 203 MPV 10.3 Immature Gran % (Auto) 0.5 Neut % (Auto) 76.1 H Lymph % (Auto) 13.9 L [place] % (Auto) 9.1 H Eos % (Auto) 0.2 Baso % (Auto) 0.2 Lymph # (Auto) 1.14 [place] # (Auto) 0.8 H Eos # (Auto) 0.0 Baso # (Auto) 0.0 Abs Immat Gran (auto) 0.04 H Absolute Neuts (auto) 6.3 Absolute Nucleated RBC 0.0 Nucleated RBC % 0.0 Sodium 137 Potassium 3.7 Chloride 105 Carbon Dioxide 27 Anion Gap 5 L BUN 15 Creatinine 0.70 Estim Creat Clear Calc 107 Estimated GFR > 60 Glucose 110 Calcium 9.2 Discharge Plan Discharge Patient Disposition: Home Health Service Discharge Instructions: Care Coordination: Patient to have [facility] for PT/OT eval and treat, and [place] [facility]. Their phone number is [phone], if you have any questions. They will contact you to schedule their first visit. RN Please fax discharge instructions to [phone]. Dr. Anshu Torres M.D [address] [address] POST-OPERATIVE DISCHARGE INSTRUCTIONS ANTERIOR TOTAL HIP ARTHROPLASTY 1. Move toes/feet up and down every hour while awake. 2. Be up walking every hour while awake. 3. Use walker ferruler if instructed to use walker ferruler.When you are allowed to use the cane, use the cane in the opposite hand. 4. When resting, do not rest in the chair. Rather, lie on your back, with back flat, and the leg elevated above heart to minimize swelling. You may put a pillow under your head. Do not rest in a chair. Resting in the chair results in swelling in the leg. Significant swelling could indicate a blood clot and if this occurs, call the office (or go to the ER) to have a venous ultrasound performed. Its ok to sit in the chair to eat and use the toilet and to receive a guest but sitting in a chair will cause your leg to swell. so try to minimize sitting in a chair. 5. Wound Care: Apply a folded 4x4 sponge to incision and hold with crossing strips of 1 inch Transpore tape. 6. Follow weight bearing status as instructed: 7. May shower. Remove dressing before shower and reapply dressing after shower. Patient Instructions: Antibiotic Form, Rivaroxaban (By mouth), Pain Management (DC), Safe Use of Anticoagulants (DC), Total Hip Replacement (DC) Stand Alone Forms: General Discharge Information Follow-up/Referrals: Anshu Torres MD [Physician] - Discharge Medications: New hydrocodone-acetaminophen 7.5-325 mg tablet 1 tablet PO Q4H PRN (Reason: pain) Qty: 40 0RF doxycycline hyclate 100 mg tablet 100 mg PO DAILY Qty: 10 0RF cyclobenzaprine 10 mg tablet 10 mg PO HS PRN (Reason: muscle spasm) Qty: 20 0RF Continued Xarelto 10 mg tablet 10 mg PO DAILY Qty: 14 0RF Rx Instructions: take 1 tab daily x 14days beginning day after surgery.
[2023-06-23 13:55] VITALS: BP 111/53; PULSE 83; RESP 16; TEMP 36.6; O2SAT 97
== END 2023-06-23 14:50 | disposition home health service (06) ==
LOC: ANHSURGERY 07:20 → ANH3MEDSUR 13:42
PROVIDERS: Visit Provider Orthopaedic Surgery
PROC: (CPT 27130; principal; 2023-06-22 10:00)
DX: M16.11 Unilateral primary osteoarthritis, right hip (principal); Z96.653 Presence of artificial knee joint, bilateral
CPT/HCPCS: 27130; 36415; 80048; 85014; 85018; 85025; 97110; 97116; 97161; 97165; 97530; 97535; 99199; A9270; C1776; J0690; J1100; J1170; J1596; J2250; J2371; J2405; J2704; J3010; J3370; J7120

== ENCOUNTER 2024-12-16 10:53 | Outpatient (CLI) | payer MEDICARE, SELFPAY ==
--- OUTSIDE RECORDS SUMMARY | 2024-12-16 11:35 | XMS_ITS | Data Portability ---
Author Organization [facility] Francia BOWEN Address [address] [place] [address] Assessment No assessment recorded. Plan of Treatment Reminders Order Date Submit Date Provider Last Modified By Organization Details Last Modified Time Details Appointments None recorded . Lab None recorded . Referral None recorded . Procedures None recorded . Surgeries None recorded . Imaging US, doppler, venous 018 12/09/19 18 [email or web address] [facility], [address] [place] [address], [id number], 8 15:00:57 Medication Orders None recorded . Patient TargetsNo targets recorded. Patient Instructions Encounter Date Encounter Id Patient Instructions Last Modified By Organization Details Last Modified Time 12/08/2017 [id number] Patient to have venous doppler to rule out DVT. Patient to follow up with doppler. [email or web address] Not available 12/08/2017 17:32:21 Reason for Referral None Reported. Results Created Date Observation Date Name Description Value Unit Range Abnormal Flag Note LastModifiedBy Organization Detail LastModifiedTime 12/12/19 18 12/08/2017 US, doppl er, venou s No observ ation record ed. BARCODE [facility] [address] [place] [address], [address], 12/11/2017 10:28:14 Result Notes None recorded. Problems Name Problem SNOMED Code Status Onset Date Resolution Date Notes Provider Name and Address Organization Details Recorded Time Benign neoplasm of colon 67449191 Active 2014 Not Available [facility] 7 00:52:17 Headache 83007482 Active 2012 Not Available [facility] 7 00:52:17 Screening for malignant neoplasm of colon Active 2013 Not Available [facility] 7 00:52:18 Allergic rhinitis 04133970 Active 2014 Not Available [facility] 7 00:52:18 Bronchitis 98049594 Active 2014 Not Available [facility] 7 00:52:18 Acute upper respiratory infection 40231788 Active 2013 Not Available [facility] 7 00:52:18 Hyperlipidemi a screening Active 2012 Not Available [facility] 7 00:52:18 Chronic sinusitis 38453247 Active 2014 Not Available [facility] 7 00:52:18 Pneumonia 187641421 Active 2014 Not Available [facility] 7 00:52:18 Difficulty speaking Active 2014 Not Available [facility] 7 00:52:18 Cough 90323038 Active 2014 Not Available [facility] 7 00:52:18 Laboratory test Active 2013 Not Available [facility] 7 00:52:18 Rosacea 912865946 Active 2014 Not Available [facility] 7 00:52:18 Problem Notes None recorded. Procedures Surgical History Date Name Laterality Status Provider Name and Address Organization Details Recorded Time Knee Surgery completed Veda Alves [facility] 12/08/2017 16:27:00 Imaging Results None recorded. Procedure Notes None recorded. Medical Equipment None Reported. Allergies Allergen ID Allergen Name Allergen Category Reaction Reaction Severity Criticality Documentation Date Start Date Code Code System Note Provider Name and Address Organization Details Recorded Time 270195 Cipro medicatio n Not available Not available Not available 04/25/20172014 92824 3 RxNorm Not Available [facility] 7 10:20:59 172754 amoxicill in medicatio n other Not available Not available 12/08/2017 723 RxNorm stoma ch disco mfort Veda trejo [facility] 8 16:08:50 Medications Name Sig Start Date Stop Date Status Note LastModified by Organization Details LastModified Time Singulair 10 mg tablet Singulair 10 mg tablet; 1 Tablet(s) ; PO; QD; 30 days; Refills: 5; Qty: 30 [ 5 - 5]; UOM: Tablet 06/02 completed Not Available Not Available Not Available hydrocodone 5 mg-acetamin ophen 325 mg tablet 12/08 completed Not Available Not Available Not Available Medrol (Samir) 4 mg tablets in a dose pack Medrol (Samir) 4 mg tablets in a dose pack; Tablet(s) ; PO; Qty: 1; as directed; UOM: Tablet 11/14 completed Not Available Not Available Not Available Zithromax Z-Samir 250 mg tablet Zithromax Z-Samir 250 mg tablet; Tablet(s) ; PO; as directed; UOM: Tablet 12/08 completed Not Available Not Available Not Available Nexium 40 mg capsule,del ayed release Nexium 40 mg capsule,d elayed release; 1 Capsule(s ); PO; QD; 30 days; Qty: 30 [ 5 - 02/03/2015 ]; UOM: Capsule 02/03 completed Not Available Not Available Not Available Zyrtec 10 mg tablet Zyrtec 10 mg tablet; 1 Tablet(s) ; PO; QD; 30 days; Qty: 30 [ 5 - 01/03/2015 ]; UOM: Tablet 01/03 completed Not Available Not Available Not Available Aspir-Low 81 mg tablet,daniel yed release Take 1 tablet every day by oral route for 30 days. active Not Available Not Available No t Available benzonatate 100 mg capsule 12/08 completed Not Available Not Available Not Available hydrocodone 7.5 mg-acetamin ophen 325 mg tablet 12/08 completed Not Available Not Available Not Available oseltamivir 75 mg capsule 12/08 completed Not Available Not Available Not Available Cipro 500 mg tablet Cipro 500 mg tablet; 1 Tablet(s) ; PO; BID; 14 days; Qty: 28 [ 5 - 11/27/2014 ]; UOM: Tablet 11/27 completed Not Available Not Available Not Available fluticasone propionate 50 mcg/actuati on nasal spray,suspe nsion Flonase 50 mcg/actua tion nasal spray,ross pension; 2 [place]; NASAL; QHS; 30 days; Qty: 1 [ - 01/03/2015 ] 12/08 completed Not Available Not Available Not Available Phenergan VC-Codeine 6.25 mg-5 mg-10 mg/5 mL oral syrup Phenergan VC-Codein e 6.25 mg-5 mg-10 mg/5 mL syrup; 1 or 2 Teaspoon( s); PO; QID; prn 11/14 completed Not Available Not Available Not Available Flovent HFA 220 mcg/actuati on aerosol inhaler Flovent HFA 220 mcg/actua tion aerosol inhaler; 1 Puff(s); INH; BID; 14 days; Qty: 1 [ - 11/27/2014 ] 11/27 completed Not Available Not Available Not Available Metrogel 1 % topical Metrogel 1 % topical; 1 Applicati on; TOP; QD; 30 days; apply to nose [09/25/2014 - 10/24/2014] 10/24 completed Not Available Not Available Not Available Xarelto 10 mg tablet 12/08 completed Not Available Not Available Not Available Vitals Date Recorded Body weight Oxygen saturation Oxygen saturation in Arterial blood by Pulse oximetry Heart rate Body height Body mass index (BMI) Systolic blood pressure Diastolic blood pressure Provider Name and Address Organization Details Last Updated DateTime 8 248344. 12 g 97 % 97 % 89 /min 197.48 cm 30.3 kg/m2 132 mm[Hg] 74 mm[Hg] Veda Alves [place] - [facility] 8 16:12:48 Social History None recorded. Functional Status None recorded. Mental Status None recorded. Family History Nothing Reported. Medical History No medical history recorded. Past Encounters Encounter ID Performer Location Encounter Start Date Encounter Closed Date Diagnosis/Indication Diagnosis SNOMED-CT Code Diagnosis ICD10 Code Diagnosis Note [id number] Tono Escalante MD [facility] [address] [place] [address] 12/08/2017 15:42:00 12/11/2017 15:00:56 Edema of lower extremity 007448826 R60.0 Health Concerns Section Related Observation LastModified by Organization Detai ls LastModified Time None Recorded Concern Status LastModified by Organization Details LastModified Time None Recorded Advance Directives Directive None Recorded Payers Insurance Date Sequence Insurance Name Policy Number Policy Patrick Covered Member ID Patrick Member ID Guarantor Name 08/03/2018 1 [facility] [id number] Polo Alvarez [id number] Polo Alvarez Notes Date Note Type Note Provider Name and Address Organization Details Recorded Time 12/08/2017 text/html Patient presents today with edema in the left leg towards ankle. started 2 weeks ago when he went back to work. Patient states he did not recall hurting it or anything. Patient states he thinks it is from his TKR back in September 2017 [facility]ADI Fowler - [facility] 12/08/2017 17:33:00
--- OUTSIDE RECORDS SUMMARY | 2024-12-16 11:35 | XMS_ITS | Clinical Summary ---
[place] [facility] [place] [facility] Address [address] [place] [address] Care Team Providers Care Acoustical Engineer Name Role Phone Huyen Dawson NP Primary Care Provider [phone] Allergies Active Allergy Reactions Criticality Noted Date Comments Amoxicillin Stomach upset,Nausea only Low 0 Medications predniSONE (DELTASONE) 20 mg tablet prednisone 20 mg tablet 1 TAB PO TID X DAYS 1-7, THEN 1 TAB PO BID X DAYS 8-14, THEN 1 TAB ONCE DAILY X DAYS 15-21, Active nitroglycerin (NITROSTAT) 0.4 mg SL tablet nitroglycerin 0.4 mg sublingual tablet Active vitamin B complex capsule Take 1 capsule by mouth daily Active multivitamin capsule Take 1 capsule by mouth daily Active vitamin E acetate (VITAMIN E ORAL) Take by mouth Active cholecalcifero l, vitamin D3, (VITAMIN D3 ORAL) Take by mouth Active Active Problems Problem Noted Date Diagnosed Date Numbness and tingling 09/25/2020 Assessment & Plan (10/05/2020 8:48 AM CDT): Laboratory assessment looking for medically addressable causes of peripheral neuropathy found elevated hemoglobin A1c consistent with glucose intolerance. He was told by his PCP in past that he had elevated sugars as well although has been on no particular intervention for this. I have asked that he follow up with his PCP for further management of his elevated hemoglobin A1c. He may ultimately need dietary restriction an exercise program and perhaps oral medication if necessary to bring the sugars down. He questioned whether he could have median entrapment neuropathy concurrently. I told him he could. The fact that he received temporary benefit from both oral and subsequently injected cortisone would suggest concurrent entrapment neuropathy. Patient is a do have underlying peripheral neuropathy are at higher incidence of having concurrent entrapment neuropathy and I suspect clinically this is the case. I have suggested he speak to his hand surgeon for consideration of potential surgical decompression consideration or at least a trial of wrist splints and oral anti-inflammatory. If a more detailed EMG/NCS would be deemed helpful, I would recommend a referral to [facility]. I will see him back in the office from the medical neurological standpoint on an as-needed basis. 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 Unfortunately his EMG/NCS was technically limited and without sensory and median ring study, entrapment neuropathy cannot be diagnostically excluded. 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 I will obtain laboratory assessment looking for medically addressable causes of peripheral neuropathy. I will see him back thereafter. Surgical History Surgery Date Site/Laterality Comments KNEE SURGERY 06/19/2017 - 06/18/2018 Bilateral bilat knee replacement ROTATOR CUFF REPAIR QUADRICEPS REPAIR Right Medical History Medical History Date Comments Infectious viral hepatitis Family History Medical History Relation Name Comments Carpal tunnel syndrome Brother Gout Father Heart failure Father No Known Problems Mother Colon cancer Sister 1 No Known Problems Sister 2 No Known Problems Sister 3 Relation Name Status Comments Brother Alive Father Mother Sister 1 Sister 2 Alive Sister 3 Alive Social History Tobacco Use Types Packs/Day Years Used Date Smoking Tobacco: Never Smokeless Tobacco: Never Alcohol Use Standard Drinks/Week Comments Yes 0 (1 standard drink = 0.6 oz pur e alcohol) socially Personal Safety Answer Date Recorded Getting School Help Needed Not on file 09/02 Sex and Gender Information Value Date Recorded Sex Assigned at Not on file Legal 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 Gender Identity Not on file Sexual Orientation Not on file 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 Not on file Not on file Not on file Obstetrics History Last Filed Vital Signs Vital Sign Reading Time Taken Comments Blood Pressure 150/98 10/05/2020 8:15 AM CDT Pulse 92 10/05/2020 8:15 AM CDT Temperature 37.2 C (98.9 F) 10/05/2020 8:15 AM CDT Respiratory Rate - - Oxygen Saturation - - Inhaled Oxygen Concentration - - Weight 117.8 kg (259 lb 9.6 oz) 10/05/2020 8:15 AM CDT Height 200.7 cm (6' 7) 10/05/2020 8:15 AM CDT Body Mass Index 29.25 10/05/2020 8:15 AM CDT Plan of Treatment Not on file Insurance [employer] Care Teams Acoustical Engineer Relationship Specialty Start Date End Date Huyen Dawson NP [address] [place] [id number] PCP - General Music Cataloguer 06/30/20
--- OUTSIDE RECORDS SUMMARY | 2024-12-16 11:35 | XMS_ITS | Data Portability ---
Author Organization [place] - [facility], [facility] Address [address] [place] [address] Care Team Providers Care Career Discovery Teacher Name Role Phone ROSI ZAZUETA Fly Maker RADHA TORRES Primary Care Provider [phone] JULIA TORRES Principal Hardware Architect [facility] BRANDEE OLIVERA Aircraft Painter Apprentice Assessment Encounter Date Assessment Date Assessment LastModified by Organization Details LastModified Time 05/14/2024 05/14/2024 Mother at 101. Father at 82 and had CHF. No family hx of CAD. Not available 05/14/2024 10:48:53 06/25/2024 06/25/2024 Mother at 101. Father at 82 and had CHF. No family hx of CAD. Not available 06/25/2024 10:14:39 Plan of Treatment Reminders Order Date Submit Date Provider Last Modified By Organization Details Last Modified Time Details Appointments PROCEDURE 45 2024 01:30P M DISP_Ultr asound Tech 1 Not available Not available Not available EST 30 2024 03:00P M Leroy DON Not available Not available Not available Lab None recorded. Referral None recorded. Procedures trans-tho isaac geiger (TTE) (PROC) 2024 025 [email or web address] Leroy Trent PA-C, [address], [place], [address], 11/24/2024 14:11:12 trans-tho racbhanu echocardi ogram (TTE) (PROC) 2023 024 LISSMICH Trent PA-C, [address], [address], [place], [address], 06/03/2024 09:07:22 Surgeries None recorded. Imaging None recorded. Medication Orders amlodipin e 10 mg tablet 2024 025 [facility], [address], [place], [place], [id number], 11/12/2024 14:06:03 amlodipin e 2.5 mg tablet [email or web address] [facility], [address] , [place], [place], [id number], 10/15/2024 09:31:32 atenolol 25 mg tablet 2023 024 [facility], [address] [place], [place], [id number], 09/21/2024 13:59:38 Patient TargetsNo targets recorded. Patient Instructions Encounter Date Encounter Id Patient Instructions Last Modified By Organization Details Last Modified Time 05/14/2024 [id number] learning about healthy weight Not available 05/14/2024 10:53:45 06/25/2024 [id number] learning about healthy weight Not available 06/25/2024 10:19:25 Reason for Referral None Reported. Results Created Date Observation Date Name Description Value Unit Range Abnormal Flag Note LastModifiedBy Organization Detail LastModifiedTime 06/02/2005/31/2024 trans -thor acic echoc ardio gram (TTE) (PROC ) No observ ation record ed. [email or web address] Leroy Trent PA-C [address], [place], [address], 11/24/2024 14:11:10 06/03/20 24 05/31/2024 trans -thor acic echoc ardio gram (TTE) (PROC ) No observ ation record ed. [email or web address] Leroy Trent PA-C [address] [address], [place], [address], 11/24/2024 14:11:10 06/03/20 24 05/31/2024 trans -thor acic echoc ardio gram (TTE) (PROC ) No observ ation record ed. [email or web address] Leroy Trent PA-C [address] [facility] [address], [place], [address], 11/24/2024 14:11:09 Result Notes None recorded. Problems Name Problem SNOMED Code Status Onset Date Resolution Date Notes Provider Name and Address Organization Details Recorded Time Hyperlipi demia 25360338 Active 2022 Jennifer Quintanilla AIR BRAKE MECHANIC [address] [place] [address], [phone] , [facility] 3 09:27:30 Coronary arteriosc lerosis 88618969 Active 2022 Jennifer Quintanilla NP [address] [place] [address], [phone] , [facility] 3 09:27:15 Snoring 70383503 Active 2022 Jennifer Quintanilla AIR BRAKE MECHANIC [address] [place] [address], [phone] , [facility] 3 09:32:34 Polyp of left nasal cavity 222912716 Active 2022 Yanely Blackburn null, [facility] 3 08:46:35 Polyp of right nasal cavity 300937323 Active 2022 Yanely Blackburn null, [facility] 3 08:46:43 Deviated nasal septum 967218868 Active 2022 Yanely Blackburn null, [facility] 3 08:46:59 Hypertrop hy of nasal turbinate s 35060900 Active 2022 Yanely Blackburn null, [facility] 3 08:47:10 Allergic rhinitis 24776731 Active 2022 Yanely Blackburn null, [facility] 3 08:47:18 Obstructi ve sleep apnea syndrome 55758468 Active 2022 Yanely Blackburn null, [facility] 3 08:41:52 Osteoarth ritis of right hip joint 69834568624 9107 Active 2022 DEONNA Baker [address], [place], [address] , [facility] 3 21:10:27 Acute sinusitis 61033774 Completed 202311/21/2024 Betina Díaz null, [facility] 5 13:23:19 Pain in both feet 88486061088 581431 Active 2023 DEONNA Baker [address], [place], [address] , [facility] 4 10:39:35 Paresthes ia of lower extremity 527836347 Active 2023 DEONNA Baker [address], [place], [address] , [facility] 4 10:43:29 Puncture wound of right foot 47710270010 557507 Completed 202311/21/2024 Betina trejo, [facility] 5 13:23:49 Tight chest 74793302 Active 2023 DEONNA Baker [address], [place], [address] , [facility] 4 11:08:14 Elevated blood-pre ssure reading without diagnosis of hypertens ion 212303835 Completed 202311/24/2024 Radha Torres NP [address], [place], [address] , [facility] 5 14:14:40 Chest pain 08653225 Active 2023 DEONNA Baker [address], [place], [address] , [facility] 4 14:29:48 Aortic root dilatatio n 748673059 Active 2024 ROSI ZAZUETA MD [address] [place], [address] , [facility] 5 10:21:40 Mitral valve regurgita tion 09504952 Active 2024 ROSI ZAZUETA MD [address] [place], [address] , [facility] 5 10:22:31 Pain of shoulder region 71723273 Active 2024 Breanna Owens ANP-C [address] [place] [address], [address] , [facility] 5 12:03:19 Osteoarth ritis of left hip joint 77531331886 9108 Active 2024 Radha Torres NP [address] [place] [address], [address] , [facility] 5 14:15:40 Family history of cancer of colon 628567077 Active 2017 Jennifer Quintanilla NP [address] [place] [address], [address] , [facility] 3 09:27:24 Carpal tunnel syndrome 83800308 Active 2020 Jennifer Quintanilla NP [address] [place] [address], [address] , [facility] 3 09:27:11 Essential hypertens ion 37316398 Active 2021 Jennifer Quintanilla AIR BRAKE MECHANIC [address] [place] [address], [address] , [facility] 3 09:27:20 Hyperglyc emia 32435964 Active 2020 Jennifer Quintanilla NP [address] [place] [address], [address] , [facility] 3 09:27:26 COVID-19 267192582 Completed 201903/28/2020 Not Available [facility] 22:08:39 Problem Notes None recorded. Procedures Surgical History Date Name Laterality Status Provider Name and Address Organization Details Recorded Time 02/28/20 Medicare Wellness CPT Code, Initial completed Alexia Winston, RN [address] [place], [address], [facility] 01/09/2023 16:14:53 07/22/19 colonoscopy completed Betina Díaz [facility] 11/21/2024 13:36:10 Hernia Repair completed Not Available [facility] 06/26/2022 22:09:50 Other completed Not Available [facility] 01/2023 22:09:50 Shoulder joint surgery completed Not Available [facility] 06/26/2022 22:09:50 Knee arthroscopy/ric prakash completed Not Available [facility] 06/26/2022 22:09:50 Carpal tunnel surgery completed Not Available [facility] 06/26/2022 22:09:50 Imaging Results None recorded. Procedure Notes None recorded. Medical Equipment None Reported. Allergies Allergen ID Allergen Name Allergen Category Reaction Reaction Severity Criticality Documentation Date Start Date Code Code System Note Provider Name and Address Organization Details Recorded Time 765379 amoxicill in medicatio n diarrhea Not available low 06/26/2022 723 RxNorm Connie Saini NP [address] [place] [address], [phone], [facility] 17:41:43 Medications Name Sig Start Date Stop Date Status Note LastModified by Organization Details LastModified Time cyclobenzap rine 10 mg tablet TAKE ONE TABLET BY MOUTH AT BEDTIME NEEDED FOR MUSCLE SPASMS 09/15 completed Not Available Not Available Not Available prednisone 10 mg tablet TAKE ONE TABLET BY MOUTH TWICE DAILY 06/13 completed Not Available Not Available Not Available azithromyci n 250 mg tablet TAKE 2 TABLETS BY MOUTH ON DAY 1, THEN TAKE 1 TABLET DAILY ON DAYS 2-5 01/31 completed Not Available Not Available Not Available benzonatate 200 mg capsule Take 1 capsule 3 times a day by oral route for 5 days. 07/27 completed Not Available Not Available Not Available hydrocodone 5 mg-acetamin ophen 325 mg tablet 05/28 completed Not Available Not Available Not Available Medrol (Samir) 4 mg tablets in a dose pack Take 1 dose pk every day by oral route as directed. 07/27 completed Not Available Not Available Not Available prednisone 20 mg tablet TAKE 1 TABLET BY MOUTH THREE TIMES DAILY FOR 7 DAYS THEN TAKE 1 TABLET TWICE DAILY FOR 7 DAYS THEN TAKE 1 TABLET EVERY DAY FOR 7 DAYS 07/29 completed Not Available Not Available Not Available Debrox 6.5 % ear drops INSTILL 5 DROPS INTO AFFECTED EAR(S) BY OTIC ROUTE 2 TIMES PER DAY PRN 04/28 completed Not Available Not Available Not Available atenolol 25 mg tablet TAKE ONE TABLET BY MOUTH EVERY DAY active Not Available Not Available No t Available amlodipine 2.5 mg tablet TAKE ONE TABLET BY MOUTH DAILY 10/15 completed Not Available Not Available Not Available meloxicam 7.5 mg tablet Take 1 tablet every day by oral route for 30 days. 07/13 completed take with food Not Available Not Available Not Available terbinafine HCl 250 mg tablet Take 1 tablet every day by oral route for 90 days. 11/22 completed Not Available Not Available Not Available ofloxacin 0.3 % ear drops INSTILL 10 DROPS INTO AFFECTED EAR(S) ONCE DAILY FOR 7 DAYS 04/28 completed Not Available Not Available Not Available amlodipine 10 mg tablet TAKE ONE TABLET BY MOUTH EVERY DAY active Not Available Not Available No t Available benzonatate 100 mg capsule 05/28 completed Not Available Not Available Not Available hydrocodone 7.5 mg-acetamin ophen 325 mg tablet TAKE ONE TABLET BY MOUTH EVERY 4 HOURS NEEDED FOR PAIN 09/15 completed Not Available Not Available Not Available cephalexin 500 mg capsule TAKE ONE CAPSULE BY MOUTH EVERY 8 HOURS WITH meals FOR 5 DAYS 03/13 completed Not Available Not Available Not Available oseltamivir 75 mg capsule 05/28 completed Not Available Not Available Not Available nitroglycer in 0.4 mg sublingual tablet 1 sl every 5 min prn for chest pain up to 3 in 15 min 09/15 completed Not Available Not Available Not Available diclofenac sodium 75 mg tablet,daniel yed release TAKE ONE TABLET BY MOUTH TWICE DAILY 06/13 completed Not Available Not Available Not Available codeine 10 mg-guaifene sin 100 mg/5 mL oral liquid Take 10 mL every 4-6 hours by oral route. 07/27 completed Not Available Not Available Not Available mupirocin 2 % topical ointment APPLY A SMALL AMOUNT TO AFFECTED AREA THREE TIMES DAILY DIRECTED active Not Available Not Available No t Available Aspir-81 mg tablet,daniel yed release Take 1 tablet every day by oral route. 05/03 completed Not Available Not Available Not Available cefdinir 300 mg capsule Take 1 capsule every 12 hours by oral route with meals for 10 days. active Not Available Not Available No t Available doxycycline hyclate 100 mg tablet TAKE ONE TABLET BY MOUTH ONCE DAILY 09/15 completed Not Available Not Available Not Available Vitamin C active Not Available Not Staci ilable Not Available calcium takes 4 daily 02/27 completed Not Available Not Available Not Available vitamin E active Not Available Not Staci ilable Not Available Vitamin D active Not Available Not Staci ilable Not Available hydrochloro thiazide 12.5 mg tablet TAKE 1 TABLET BY MOUTH EVERY DAY 02/27 completed Not Available Not Available Not Available diclofenac 1 % topical gel APPLY NO MORE THAN 4 GRAMS TO AFFECTED AREA OF FOOT EVERY 6 TO 8 HOURS NEEDED FOR PAIN 04/28 completed Not Available Not Available Not Available B12 1000mcg SL daily active Not Available Not Available No t Available krill oil 09/15 completed Not Available Not Available Not Available Xarelto 10 mg tablet TAKE ONE TABLET BY MOUTH DAILY FOR 14 DAYS BEGINNING THE DAY AFTER surgery 09/15 completed Not Available Not Available Not Available Sinus Rinse 02/27 completed per ENT Not Available Not Available Not Available Flonase Allergy Relief 50 mcg/actuati on nasal spray,suspe nsion [place] 1 spray every day by intranasa l route. 02/27 completed per ENT Not Available Not Available Not Available Fish Oil 1,000 mg (120 mg-180 mg) capsule Take 1 capsule twice a day by oral route. active Not Available Not Available No t Available turmeric 09/15 completed Not Available Not Available Not Available Fluzone Quad (PF) 60 mcg (15 mcg x 4)/0.5 mL IM syringe ADM 0.5ML IM UTD 07/29 completed Not Available Not Available Not Available Vitals Date Recorded Body height Body mass index (BMI) Body weight Body temperature Oxygen saturation Oxygen saturation in Arterial blood by Pulse oximetry Heart rate Systolic blood pressure Diastolic blood pressure Provider Name and Address Organization Details Last Updated DateTime 5 195.58 cm 31.8 kg/m2 444076. 76 g 98.6 [degF] 94 % 94 % 59 /min 163 mm[Hg] 83 mm[Hg] OSCAR Garcia [facility] 5 10:11:50 Date Recorded Body height Body mass index (BMI) Body weight Body temperature Heart rate Oxygen saturation Oxygen saturation in Arterial blood by Pulse oximetry Respiratory rate Systolic blood pressure Diastolic blood pressure Provider Name and Address Organization Details Last Updated DateTime 5 195.58 cm 31.9 kg/m2 559090. 35 g 97.8 [degF] 68 /min 96 % 96 % 18 /min 172 mm[Hg] 84 mm[Hg] Carmelita Tima [facility] 5 10:31:35 Date Recorded Body height Body mass index (BMI) Body weight Body temperature Heart rate Oxygen saturation Oxygen saturation in Arterial blood by Pulse oximetry Respiratory rate Systolic blood pressure Diastolic blood pressure Provider Name and Address Organization Details Last Updated DateTime 5 195.58 cm 30.6 kg/m2 146038. 83 g 96.9 [degF] 57 /min 95 % 95 % 18 /min 168 mm[Hg] 77 mm[Hg] Valerie Vallejokarma [facility] 5 09:23:21 Date Recorded Body height Body mass index (BMI) Body weight Body temperature Heart rate Respiratory rate Oxygen saturation Oxygen saturation in Arterial blood by Pulse oximetry Systolic blood pressure Diastolic blood pressure Provider Name and Address Organization Details Last Updated DateTime 5 195.58 cm 29.3 kg/m2 430606. 32 g 98.6 [degF] 58 /min 18 /min 99 % 99 % 128 mm[Hg] 80 mm[Hg] Veda Caba [facility] 5 11:06:33 Date Recorded Body height Body mass index (BMI) Body weight Body temperature Oxygen saturation Oxygen saturation in Arterial blood by Pulse oximetry Heart rate Systolic blood pressure Diastolic blood pressure Provider Name and Address Organization Details Last Updated DateTime 4 195.58 cm 31.3 kg/m2 966052. 39 g 97.7 [degF] 93 % 93 % 76 /min 163 mm[Hg] 90 mm[Hg] OSCAR Garcia A [facility] 4 10:16:46 Social History Question Answer Notes LastModified by Organizat ion Details LastModified Time Tobacco Smoking Status Never Smoker Not Available [facility] 06/26/2022 22:05:44 Do You Have An Advance Directive? No AD Packet Given [email or web address] Information not available 02/27/2023 Are You Blind Or Do You Have Difficulty Seeing? No [email or web address] Information not available 02/27/2023 What Is Your Level Of Caffeine Consumption? Occasional [email or web address] Information not available 09/16/2023 How Much Tobacco Do You Chew? None MIGRATION.[id number] Information not available 06/26/2022 In The 14 Days Before Symptom Onset, Have You Had Close Contact With A Laboratory-confi rmed COVID-19 While That Case Was Ill? No MIGRATION.89984 [id number] Information not available 06/26/2022 In The 14 Days Before Symptom Onset, Have You Had Close Contact With A Person Who Is Under Investigation For COVID-19 While That Person Was Ill? No MIGRATION.71118 [id number] Information not available 06/26/2022 Are You Deaf Or Do You Have Serious Difficulty Hearing? No MIGRATION.54935 68224 Information not available 06/26/2022 What Type Of Diet Are You Following? REGULAR MIGRATION.31581 01651 Information not available 06/26/2022 Have There Been Any Changes To Your Family Or Social Situation? No Information not available 06/13/2023 What Is The Fluoride Status Of Your Home? Non-fluoridated Information not available 11/21/2024 Which Of Your Hands Is Dominant? Right MIGRATION.16391 25622 Information not available 06/26/2022 Do You Use Insect Repellent Routinely? No Information not available 11/21/2024 Where Do You Live? SingleLevelHouse Information not available 10/15/2024 Are You In An Abusive/frighten ing Relationship? No MIGRATION.85055 23328 Information not available 06/26/2022 Do You Feel Safe At Home Yes Information not available 11/21/2024 Do You Feel Hopeless Or Helpless No Information not available 06/13/2023 Have You Had Thoughts Of Suicide? No MIGRATION.07041 01770 Information not available 06/26/2022 Are You Having Any Suicidal Thoughts Now? No MIGRATION.86775 91510 Information not available 06/26/2022 Have You Previously Attempted Suicide? No MIGRATION.89284 19255 Information not available 06/26/2022 Do You Have A Plan To Hurt Yourself Or Others? No Information not available 06/13/2023 Has A Family Member Or Someone Close To You Committed Suicide Or Have You Been A Witness To Suicide? No MIGRATION.19063 11145 Information not available 06/26/2022 Have You Fallen In The Last 3 Months? No MIGRATION.57936 13399 Information not available 06/26/2022 Are You Blind Or Do You Have Difficulty Seeing? No MIGRATION.68474 81650 Information not available 06/26/2022 Do You Have A Plan To Hurt Yourself Or Others? No MIGRATION.93863 38715 Information not available 06/26/2022 Do You Feel Hopeless Or Helpless? No MIGRATION.77233 30882 Information not available 06/26/2022 What Was The Date Of Your Most Recent Tobacco Screening? 11/22/2024 Information not available 11/21/2024 Have You Ever Been Counseled For Unhealthy Alcohol Use? No MIGRATION.57035 18468 Information not available 06/26/2022 Do You Have Any Pets? Yes Information not available 11/21/2024 What Is Your Relationship Status? Information not available 11/21/2024 Do You Have Smoke And Carbon Monoxide Detectors In Your Home? Yes Information not available 06/13/2023 Are You Passively Exposed To Smoke? No Information not available 06/13/2023 Are There Any Smokers In Your House? No Information not available 06/13/2023 How Much Tobacco Do You Smoke? No MIGRATION.10245 96249 Information not available 06/26/2022 Do You Participate In Social Media? Yes Information not available 06/13/2023 Do You Use Sunscreen Routinely? No Information not available 11/21/2024 Has Tobacco Cessation Counseling Been Provided? Yes [email or web address] Information not available 05/14/2024 On What Date Was Tobacco Cessation Counseling Provided? 06/25/2024 [email or web address] Information not available 06/25/2024 How Many Years Have You Smoked Tobacco? 0 MIGRATION.15418 34261 Information not available 06/26/2022 Have You Recently Traveled Abroad? No Information not available 11/21/2024 Do You Have Difficulty Walking Or Climbing Stairs? No MIGRATION.52003 95487 Information not available 06/26/2022 Are You Currently In School? No MIGRATION.61961 73593 Information not available 06/26/2022 Do You Have Any Dietary Restrictions? No Information not available 06/13/2023 Sex: Male Functional Status Question Answer Note LastModified by COCC ion Details LastModified Time Do you use any illicit or recreational drugs? No MIGRATION.00441 96256 Information not available 06/26/2022 Do you or have you ever used any other forms of tobacco or nicotine? No MIGRATION.49737 04689 Information not available 06/26/2022 What is your level of alcohol consumption? Occasional MIGRATION.03094 39307 Information not available 06/26/2022 Do you or have you ever used smokeless tobacco? 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 No MIGRATION.89384 15827 Information not available 06/26/2022 Are you able to walk? YESWOREST MIGRATION.34551 60981 Information not available 06/26/2022 Do you have difficulty doing errands alone? No MIGRATION.37397 64980 Information not available 06/26/2022 Are you able to care for yourself? Yes [email or web address] Information n ot available 07/29/2022 Do you have difficulty dressing or bathing? No MIGRATION.68757 95288 Information not available 06/26/2022 Do you or have you ever used e-cigarettes or vape? Never used electronic cigarettes MIGRATION.26551 22435 Information not available 06/26/2022 What is your exercise level? Occasional MIGRATION.56423 33739 Information not available 06/26/2022 Mental Status Question Answer Note LastModified by Organizat ion Details LastModified Time Do you feel stressed (tense, restless, nervous, or anxious, or unable to sleep at night)? [id number] [email or web address] Information not available 02/02/2024 Do you have difficulty concentrating, remembering or making decisions? No MIGRATION.[id number] 01 Information not available 06/26/2022 Family History Relationship Description Onset Age of this Age Resolved Age Notes LastModified by Organization Details LastModified Time Sister Malignant neoplastic disease colon [id number].087 [id number] Not available 06/26/2022 22:04:59 Father Heart disease CHF MIGRATION.[id number] Not available 06/26/2022 22:04:59 Medical History Condition Response ARTHRITIS Y RHEUMATIC FEVER N USE OF BLOOD THINNERS N SKIN PROBLEMS N PROSTATE N HEARTBURN / REFLUX N RADIATION / CHEMOTHERAPY N EYE PROBLEMS N BLOOD CLOTS N ASTHMA N HEPATITIS / LIVER DISEASE N PULMONARY DISEASE N CAROTID BLOCKAGE N GOUT N SLEEP DISORDER N BACK / NECK PROBLEMS Y BOWEL PROBLEMS N DEPRESSION (INCLUDING POST ) N FEMALE PROBLEMS / INFECTIONS N HAVE YOU BEEN HOSPITALIZED OR SEEN IN [facility] ER IN THE PAST YEAR ? N HERPES N DEMENTIA N ATHEROSCLEROSIS N THYROID DISEASE N ULCERS Y VASCULAR DISEASE N Blood Disorder N DIZZINESS N KIDNEY DISEASE N BREAST PROBLEMS N DIALYSIS N HYPERTENSION N CARDIAC ARRHYTHMIA N CANCER: SPECIFY N ANXIETY DISORDER N OBESITY N ANEMIA/BLOOD DISORDER N PNEUMONIA N ANEURYSM N PULMONARY EMBOLISM N BRONCHITIS N OSTEOPOROSIS N URINARY/BLADDER/KIDNEY PROBLEMS N TUBERCULOSIS N Immunizations Vaccine Type Date Status Note Provider Nam e and Address Organization Details Recorded Time Tdap 4 [facility] 17:42:11 Influenza, high-dose, quadrivalent, PF 2 completed Not Available [facility] 06/26/2022 22:09:41 pneumococcal polysaccharide PPV23 0 completed Not Available [facility] 06/26/2022 22:09:41 Pneumococcal conjugate PCV 13 9 completed Not Available [facility] 06/26/2022 22:09:41 Influenza, split virus, quadrivalent, PF 9 completed Not Available [facility] 06/26/2022 22:09:42 influenza, unspecified formulation 3 completed Veda Caba null, [facility] 11/22/2024 11:01:31 Influenza, split virus, trivalent, preservative 4 completed Carmelita Alfred null, [facility] 02/02/2024 10:13:02 Influenza, split virus, quadrivalent, PF 0 completed Carmelita Alfred null, [facility] 02/02/2024 10:13:02 Influenza, split virus, quadrivalent, PF 4 completed Carmeltia Alfred null, [facility] 02/02/2024 10:13:02 zoster recombinant 3 completed Veda Caba null, [facility] 11/22/2024 11:01:31 zoster recombinant 4 completed Betina Díaz null, [facility] 11/21/2024 13:31:13 Past Encounters Encounter ID Performer Location Encounter Start Date Encounter Closed Date Diagnosis/Indication Diagnosis SNOMED-CT Code Diagnosis ICD10 Code Diagnosis Note [id number] ADRI Sutton [address] [address] 5 05/02/2018 00:00:00 05/02/2018 15:30:37 [id number] ADRI Sutton [address] [address] 5 09/10/2018 00:00:00 09/13/2018 15:37:47 [id number] Janeen Ambrose MD [address] [address] 5 05/03/2019 00:00:00 05/03/2019 11:32:28 [id number] ADRI Sutton [address] [address] 5 08/24/2019 00:00:00 08/27/2019 16:59:25 [id number] Janeen Ambrose MD [address] [address] 5 05/08/2020 00:00:00 05/08/2020 17:13:58 [id number] ADRI Sutton [facility] [address] [place] [address]702 5 06/01/2020 00:00:00 06/04/2020 12:13:47 [id number] Janeen Ambrose MD [facility] [address] [place] [address]861 5 06/05/2020 00:00:00 06/05/2020 09:25:45 [id number] Janeen Ambrose MD [facility] [address] [place] [id number] 5 06/25/2020 00:00:00 06/25/2020 11:12:07 [id number] Janeen Ambrose MD [facility] [address] [place] [id number] 5 07/13/2020 00:00:00 07/13/2020 16:16:26 [id number] Janeen Ambrose MD [facility] [address] [place] [id number] 5 10/12/2020 00:00:00 10/12/2020 09:18:48 [id number] Janeen Ambrose MD [facility] [address] [place] [id number] 5 12/04/2020 00:00:00 12/04/2020 11:36:52 [id number] Janeen Ambrose MD [facility] [address] [place] [id number] 5 02/01/2021 00:00:00 02/01/2021 09:57:11 [id number] Janeen Ambrose MD [facility] [address] [place] [id number] 5 02/04/2021 00:00:00 02/04/2021 15:40:06 [id number] Janeen Ambrsoe MD [facility] [address] [place] [id number] 5 03/23/2021 00:00:00 03/23/2021 09:39:29 [id number] ADRI Sutton [facility] [address] [place] [id number] 5 06/26/2021 00:00:00 07/03/2021 15:23:32 [id number] Janeen Ambrose MD [address] [address] 5 07/27/2021 00:00:00 07/27/2021 15:35:08 [id number] STEPHEN SuttonP [address] [address] 5 12/13/2021 00:00:00 12/14/2021 14:58:52 [id number] Natalee Galvin NP [address] [address] 5 04/15/2022 00:00:00 04/15/2022 17:28:59 [id number] Janeen Ambrose MD [address] [address] 5 04/28/2022 00:00:00 04/28/2022 10:25:03 [id number] Janeen Ambrose MD [address] [address] 5 07/29/2022 09:14:54 07/29/2022 10:33:17 Hyperlipidemia 81215655 E78.5 Diet controlled Educated patient to the benefit of exercise and low cholestero l dietPt verbalized understand ingNotify any CP, SOB, or changesChe ck labs. Essential hypertension 57265579 I10 142/80 today, BP's usually well controlled , likely white coat syndromeHC TZ 12.5 mgContinue current medication s Coronary arteriosclerosis 25481689 I25.10 declines f/u with cardio. check routine labs Snoring 69424359 R06.83 WIll refer to ENT [id number] GAYATRI Baker-C [address] [address] 5 02/27/2023 09:58:25 02/27/2023 11:34:55 Adult health examination 518616009 Z00.00 Patient presented to office today for their Medicare Annual Wellness Visit.Educ ation was provided on healthy nutrition, including a diet rich in fruits and vegetables , minimizing simple carbohydra javier, salt, and saturated fats. Encouraged regular cardiovasc ular exercise such as walking at least 30 minutes daily, 5 times per week.Empha sized preventive health measures and educated pt on fall prevention and community- based lifestyle interventi ons to help reduce health risks and promote healthy living.Latoya olguin's BMI is 30.8. Screening for disorder 355996392 Z13.89 Body mass index 30+ - obesity 708179665 Z68.30 Essential hypertension 14799220 I10 HTN is uncontroll ed, he is refusing to take any medication s for this. We did discuss the potential adverse effects of untreated HTN. Hyperlipidemia 09890254 E78.5 He refuses to take medication s to lower his cholestero l. We did discuss the potential adverse effects not controllin g his lipids. Coronary arteriosclerosis 05363324 I25.10 Hx: of CAD, he refuses to follow with cardiology . Currently asymptomat ic. Obstructiv e sleep apnea syndrome 35410017 G47.33 Moderate TI per sleep medicine. Pt. refuses CPAP. [id number] Janeen Ambrose MD [address] [address] 06/13/2023 10:24:37 06/13/2023 22:06:22 Osteoarthritis of right hip joint 0153012752 60150 M16.11 He is medically cleared for right total hip replacemen t 06/22. Form completed, will fax to Dr. Torres's office as requested. Essential hypertension 35442352 I10 BP is normal today without medication . [id number] JOSEE BACON MD [address] [address] 5 09/16/2023 10:27:58 09/16/2023 12:13:21 Acute sinusitis 02749996 J01.90 Advised pt to increase oral hydration, , nasal rinse, alt OTC ibuprofen or Tylenol PRN, rest, full course of abx & decongesta nt f/u PRN or if sx persist/wo rsen [id number] Janeen Ambrose MD [address] [address] 5 02/02/2024 10:09:55 02/02/2024 12:34:51 Pain in both feet 0992009930 [id number] M79.672 Will refer to podiatry, he has seen Dr. Torres in the past. Paresthesi a of lower extremity 261000565 R20.2 Labs ordered, further recommenda tions pending results. Screening for disorder 637117328 Z13.89 Hyperlipidemia 02489655 E78.5 He refuses to take medication s to lower his cholestero l. We did discuss the potential adverse effects high cholestero l. Will update labs. Screening for malignant neoplasm of prostate 315390629 Z12.5 [id number] Manuela Shearer MD [address] [address] 5 02/20/2024 17:05:04 02/20/2024 18:29:01 Puncture wound of right foot 0716884230 1075470 S91.331A -Will treat prophylact ically d/t puncture wound through shoe.-Pt to begin antibiotic as prescribed . Medication education provided. To help avoid GI complicati ons, recommende d use of probiotic supplement and/or yogurt with antibiotic course and 1-2 weeks following. -TDAP updated.-B asic skin care discussed. -Pt to follow-up w/ PCP or return to clinic if issue fails to improve or worsens. Red flag symptoms and when to seek emergency care discussed. -Pt verbalizes understand ing and is agreeable to plan of care. [id number] Janeen Ambrose MD [address] [address] 03/14/2024 10:22:34 03/14/2024 18:03:01 Chest pain 54438343 R07.9 EKG shows no acute changes when compared to previous from 2018. Will refer to cardiology for further evaluation and probable stress test. [id number] ROSI ZAZUETA MD [facility] [address] [address] 05/14/2024 10:05:50 05/14/2024 11:08:26 Chest pain 26746564 R07.9 Previous eval 2019. ECG 03/14/2024 no acute changes. Given CP is sporadic only about 2-3 times a month and distinctly not exertion related. Prior cath 2019 was clean. Check echo. Body mass index 30+ - obesity 708828203 Z68.31 BMI 31.3 Essential hypertension 76613396 I10 Not controlled today 163/90. Prior BP 146/ D. Not on any BP medication . Consider anti-hyper tensive rx if serial BP's are high. He insists this is white coat syndrome. Low dose beta leida trial. Hyperglycemia 75265772 R 73.9 Hyperlipidemia 92869244 E78.5 Had FLP this past summer: TC 230, LDL 150. HDL 58. Placed on fish oil by PCP. LDL goal 100. If not achieved by omega 3 fish oil, statin should be considered . Low carbohydra te diet recommende d and discussed today. Wants to wait to see what his FLP results are on krill oil before moving on to statins. [id number] ROSI [facility] [address] [address] 06/25/2024 09:56:16 06/25/2024 10:29:07 Body mass index 30+ - obesity 352291530 Z68.31 BMI 31.8 Chest pain 01518609 R07. 9 Previous eval 2018. ECG 03/14/2024 no acute changes. Given CP is sporadic only about 2-3 times a month and distinctly not exertion related. Prior cath 2019 was clean. ECHO showed normal LV and RV and mild MR and PI but aortic root enlarged 4.3 cm. Ascending aorta 3.7 cm. Essential hypertension 28972174 I10 Not controlled today 163/83. Prior BP 146/ D. Added BP medication atenolol last month. Must now consider further anti-hyper tensive rx given on going HTN and aortic root dilatator. Plan add amlodipine 2.5 mg a day. Hyperglycemia 65965228 R 73.9 Hyperlipidemia 02882822 E78.5 Had FLP this past summer: TC 230, LDL 150. HDL 58. Placed on fish oil by PCP. LDL goal 100. If not achieved by omega 3 fish oil, statin should be considered . Low carbohydra te diet recommende d and discussed today. Wants to wait to see what his FLP results are on krill oil before moving on to statins. Aortic tatyana t dilatation 073042938 I77.810 Incidental finding on 05/2024 echo. Aggressive BP control and follow up ECHO 05/2025. Mitral mai ve regurgitation 12182699 I34.0 1+ on 2023 echo. [id number] Breanna Owens, ANP-C [facility] [address] [place] [address] 07/12/2024 10:18:55 07/15/2024 02:20:15 Essential hypertension 55085771 I10 HTN is not controlled . We had a long discussion about the importance of controllin g his BP. He will start taking the amlodipine in addition to atenolol. He will check his BP daily and call in 1 week with readings. Aortic tatyana t dilatation 547270126 I77.810 He will follow up with cardiology as ordered. We discussed that this will be monitored with routine echo. Pain of sh oulder region 78799030 M25.519 Intermitte nt posterior shoulder pain is likely related to Cervical DDD. He does see a chiropract or for arthritis in the neck. He declines any imaging and will f/u with any worseing of his symptoms. [id number] ROSI ZAZUETA MD [facility] [place] [address] [place] [address] 10/15/2024 09:15:58 10/15/2024 09:41:54 Chest pain 07137776 R07.9 Previous eval 2018. ECG 03/14/2024 no acute changes. Given CP is sporadic only about 2-3 times a month and distinctly not exertion related. Prior cath 2019 was clean. ECHO showed normal LV and RV and mild MR and PI but aortic root enlarged 4.3 cm. Ascending aorta 3.7 cm. Essential hypertension 02626598 I10 Not controlled again today 163/83. Prior BP 146/ D. Added BP medication atenolol previously . Increase amlodipine to 10 mg. Hyperlipidemia 35712904 E78.5 Had FLP this past summer: TC 230, LDL 150. HDL 58. Placed on fish oil by PCP. LDL goal 100. If not achieved by omega 3 fish oil, statin should be considered . Low carbohydra te diet recommende d and discussed today. Wants to wait to see what his FLP results are on krill oil before moving on to statins. Mitral mai ve regurgitation 84632595 I34.0 1+ on 2023 echo. Hyperglycemia 32197134 R 73.9 Aortic tatyana t dilatation 491404573 I77.810 Incidental finding on 05/2024 echo. Aggressive BP control and follow up ECHO 05/2025. [id number] Radha Torres NP [facility] [address] [place] [address] 11/22/2024 10:50:33 11/25/2024 01:53:17 Active immunization 98687272 Z23 declined today Essential hypertension 85513187 I10 - BP 128/80 today- amlodipine 10mg daily- atenolol 25mg daily Osteoarthr itis of left hip joint 1224713671 68990 M16.12 - THR left, scheduled for 12-30-24 Preoperative state 77226 002 Z01.818 - will complete the form from [facility] Health Concerns Section Related Observation LastModified by Organization Detai ls LastModified Time None Recorded Concern Status LastModified by Organization Details LastModified Time None Recorded Advance Directives Directive N: AD packet given Payers Insurance Date Sequence Insurance Name Policy Number Policy Patrick Covered Member ID Patrick Member ID Guarantor Name 07/28/2022 1 [place] [id number] Polo Alvarez [id number] Polo Alvarez 09/16/2023 1 [place] Polo Alvarez [id number] Polo Gonzalez [facility] 09/16/2023 2 [place] [id number] Polo Alvarez [id number] Polo Alvarez 01/24/2024 [employer] - MEDICARE - PART A - PART A - [facility] - [facility] - [place] (MEDICARE) Polo Alvarez [id number] Polo Alvarez 11/20/2024 1 [employer] (MEDICARE REPLACEMENT/ ADVANTAGE - PPO) [id number] Polo Alvarez [id number] Polo Alvarez Notes Date Note Type Note Provider Name and Address Organization Details Recorded Time 05/14/2024 text/html Referred for CP 02/2024. Had a similar complaint in 2019 and had stress test and cardiac cath. ECG for CP 2 months ago showed only SR with first degree AVB. No ST-T changes. Risk factors include HTN, lipid disorder and possibly DM. Not currently on nitroglycerin. He describes a tension feeling in his upper body. Lasts 14-30 seconds. Not associated with activity level. Not associated with eating. Occurs about 2 times a month. ROSI ZAZUETA MD [address] [place], [address], [facility] 05/14/2024 10:57:14 06/25/2024 text/html Here to review E CHO LVEF 60-65%. Mild MR, Aortic root 4.3 cm and ascending aorta, 3.7 cm. ROSI ZAZUETA MD [address] [place], [address], [facility] 06/25/2024 10:26:07 07/12/2024 text/html 69 year old male presents for evaluation of occasional posterior shoulder pain. The pain is intermittent and is not exertional. He has been evaluated by cardiology, the pain is not heart related. He was found to have a dilated aortic root and was to start amlodipine in addition to the atenolol. He reports that communication at the OV was not clear and he is not taking the amlodipine. His BP is elevated as a result. He does report intermittent stiff/sore neck and does see the chiropractor regularly. He does report that the posterior shoulder pain does occur when his neck is acting up. He denies any pain radiating into his arms or hands. Breanna Owens ANP-C [address] [place] [address], [address], [facility] 07/12/2024 12:04:54 10/15/2024 text/html Lost 10 pounds since last OV. Bp remains high, however. ROSI ZAZUETA MD [address] [place], [address], [facility] 10/15/2024 09:35:42 11/22/2024 text/html 69 y.o. male presents to clinic to establish care. He has no concerns other than his OA and hip pain. He is scheduled for a left hip replacement at [facility] on December 30. Denies chest pain, sob, dizziness. BP at home 120-130s/70s; 128/80 in office today Radha Torres, BALTA [address] [place] [address], [phone], [facility] 11/24/2024 14:19:09
--- OUTSIDE RECORDS SUMMARY | 2024-12-16 11:35 | XMS_ITS | Referral Summary ---
Author Organization [facility] Address [address] [place] [address] Care Team Providers Care Fan Mail Editor Name Role Phone Huyen Dawson NP Primary Care Provider [phone] Allergies Active Allergy Reactions Criticality Noted Date [...] helpful, I would recommend a referral to [facility]. I will see him back in [...] neuropathy. I will see him back thereafter. 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
--- OUTSIDE RECORDS SUMMARY | 2024-12-16 11:35 | XMS_ITS | Patient Health Record ---
Author Organization [facility] Address [address] [facility] [address] [place] [address] Care Team Providers Care Junior Qa Analyst Name Role Phone Huyen Dawson Primary Care Provider Unavailab Ishmael Acevedo Unavailable Allergies No Known Allergies Reason For Referral No Information Medications Medication SIG (Take, Route, Fr equency, Duration) Notes Start Date End Date Status Terbinafine HCl 250 MG 1 tablet Orally o nce daily for 7 days in a row, then stop. 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) Active confirmed Problem Acquired hammer toe of left foot (07691105819331 03) Hammertoe of left foot (M20.42) Active confirmed Problem Arthritis of left foot (16346234961214 09) Arthritis of left foot (M19.072) Active confirmed Vital Signs Height 79 in 02/28/2024 Weight 264 lbs 02/28/2024 BMI 29.74 kg/m2 02/28/2024 Encounters Encounter Location Date Provider Diagnosis 3 [facility] Snell [address] [place] [address] [address] [place] [address] 02/28/2024 Ishmael Torres Idiopathic neuropathy G60.9 ; Onychomycosis B35.1 and Onychogryphosis L60.2 1 OF [facility] [address] [address] 02/28/2024 Ishmael Torres Assessments Encounter Date Diagnosis (ICD Code) Assessment Notes Treatment Notes Treatment Clinical Notes Section Notes 02/28/2024 Idiopathic neuropathy (ICD-10 - G60.9) Discussed signs and symptoms of peripheral idiopathic neuropathy. Discussed treatment options including topical and oral medications. Advised of potential serious side effects with oral medications. Discussed Rx meds including Lyrica, Elavil, Gabapentin, Recommend pt start to walk for exercise to help improve circulation. Monitor feet nightly for wounds, use lotion daily. Follow up as needed for this issue 02/28/2024 Onychomycosis (ICD-10 - B35.1) Recommended reviewing recent labs from his PCP before proceeding with oral treatment of nail fungus. We will contact patient after labs have been reviewed and if no concerns with labs will provide Rx for oral terbinafine and advised f/u every 3 months until nail fungus has cleared. 02/28/2024 Onychogryphosis (ICD-10 - L60.2) Plan Of Treatment No Information Insurance Providers Payer Name Payer Address Payer Phone Subscriber Number Group Number Insured Name Patient Relationship to Insured Coverage Start Date Coverage End Date [employer] [address] [place] [id number] Polo Alvarez Self - patient is the insured Medical (General) History Surgical History Surgery Date(Month/Year)
[2024-12-16 12:21] LABS: Basophils Absolute Auto 0.1 K/mm3 (0.0-0.1); Basophils Percent Auto 1.1 % (0.2-1.2); Eosinophils Absolute Auto 0.2 K/mm3 (0-0.3); Eosinophils Percent Auto 4.3 % (0-4.4); Hematocrit 43.7 % (42.0-52.0); Hemoglobin 14.4 g/dL (14.0-18.0); Immature Granulocyte Absolute 0.02 K/mm3 (0.00-0.031); Immature Granulocyte Percent A 0.4 % (0-0.5); Lymphocytes Absolute Auto 1.19 K/mm3 (0.9-3.2); Lymphocytes Percent Auto 22.1 % (18.3-44.2); Mean Corpuscular Volume 94.2 fl (80-100); Mean Platelet Volume 10.4 fl (7.4-10.4); Monocytes Absolute Auto 0.4 K/mm3 (0.1-0.6); Monocytes Percent Auto 7.2 % (2.6-8.5); Neutrophils Absolute Auto 3.5 K/mm3 (1.3-6.7); Neutrophils Percent Auto 64.9 % (45.5-73.1); Platelet Count Result 211 k/mm3 (150-375); Red Blood Count 4.64 M/mm3 (4.6-6.20); Red Cell Distribution Width 12.7 % (11.5-14.5); White Blood Count 5.4 K/mm3 (4.5-10.0)
[2024-12-16 12:32] LABS: Albumin Level 4.1 g/dL (3.5-5.1); Estimated Glomerular Filt Rate > 60; Glucose 100 mg/dL (65-110)
[2024-12-16 13:26] LABS: Urine Cotinine NEGATIVE
[2024-12-16 13:32] LABS: MRSA (PCR) NOT DETECTED (NOT DETECTE)
[2024-12-16 14:48] LABS: Hemoglobin A1C. 5.7 % (<5.7)
== END 2024-12-16 10:54 | disposition home or self-care (01) ==
PROVIDERS: Visit Provider Orthopaedic Surgery
DX: Z01.812 Encounter for preprocedural laboratory examination (principal); M16.12 Unilateral primary osteoarthritis, left hip
CPT/HCPCS: 80307; 82040; 82565; 82947; 83036; 85025; 87641

== ENCOUNTER 2024-12-30 01:16 | Day surgery (SDC) | payer MEDICARE, SELFPAY ==
--- NOTE | 2024-12-16 10:56 | PC.NURSE ---
Report to the Outpatient Waiting Room, entrance under the green pavilion located off [address], at time _6 AM on date 12/30/24 . Planned Procedure Time: 7:30 AM .? Time changes happen often and if your time is changed the preop area will call you the afternoon before. - You and your visitor will be asked to self-screen and do not enter if you have any COVID symptoms. Please call surgeon if you need to reschedule. - A mask is optional within the hospital at this time. Patients may have clear liquids (water, carbonated beverages, clear teas, apple juice) until 3 hours prior to surgery ( 4:30 AM) with a maximum of 20 ounces. - No food from midnight until time of surgery and no smoking, or chewing tobacco (or any form of nicotine). No chewing gum, candy or mints. - Take only the following medications with a SIP of water on the morning of surgery: ___AMLODIPINE,ATENOLOL DO NOT STOP ANY OF YOUR OTHER PRESCRIPTION MEDICATIONS PRIOR TO SURGERY EXCEPT THE FOLLOWING Hold all vitamins and supplements for 3 days per anesthesiologist.LAST DOSE 12/26/24 Medications to discontinue per physician NONE Date to take last dose Please no make-up, nail khmer, hairspray, perfume, deodorant, or body powder the day of surgery.? No jewelry (including any body piercings) or valuables the day of surgery, leave them at home.? Please take a shower or bath the night before, or the morning of, surgery with an antibacterial soap.? Wear comfortable, loose fitting clothing.? Children are encouraged to wear pajamas. - Jewelry must be removed prior to entering the operating room.? Rings and piercings that are not removed may be cut off. - The hospital will not accept responsibility for valuables.? - Please leave all valuables, including medications, at home the day of surgery. If you are going home after surgery, a licensed light truck driver must drive you home.? - NO public transportation without another adult if you receive anesthesia. - We recommend that an adult stay with you for 24 hours following discharge. - We also recommend that you do not drive, make important decision, drink alcoholic beverages, or take any drugs that were not prescribed by your health care provider for at least 24 hours after your discharge time. For Pediatric surgeries, we recommend two adults accompany the child home. Follow any additional instructions given to you from your surgeon. VERBAL AND WRITTEN instructions given to __PATIENT and asked if any additional questions and then verbalized understanding. Patient advised to call surgeon office or pre surgery nurse liaison [phone] if any additional questions.
[2024-12-16 11:01] VITALS: BMI 27.9
[2024-12-16 11:44] VITALS: BP 128/75; PULSE 55; RESP 18; TEMP 36.8; O2SAT 97
[2024-12-16 12:16] VITALS: BMI 29.4
--- NOTE | 2024-12-26 07:41 | PM.IMHP ---
H&P: HPI History of Present Illness Date/Time: 12/26/24 07:41 Chief Complaint: Patient has hip pain left. He has an arthritic left hip. He has tried conservative treatment and it is no longer effective form he has had a hip replacement on the right is doing well from that. Review of Systems Musculoskeletal: Musculoskeletal: Reports arthralgias and Reports joint swelling PMFSH Past Medical History Medical History TI (obstructive sleep apnea) Overweight Surgical History Surgical History History of right hip replacement 06/22/23 History of hernia repair History of knee replacement bilateral- Dr Torres History of rotator cuff surgery right x2 left History of surgery on lower extremity quad muscle repair- bilateral Social History Social History Smoking status: Never smoker Second hand tobacco smoke exposure: No Additional smoking assessment comments: DENIES ANY FORM OF TOBACCO USE Alcohol intake: current Drinks per week: 1 Alcohol use details: occasionally Substance use: never Substance use type: does not use Do You Feel Safe in your Home?: Yes Lack of Transportation: No Lack of Food: Never True Current Housing: I Have Housing Concerned About Future Housing: No Difficulty Paying Gas/Electric Bills: No Difficulty Paying for Meds: No Currently Unemployed: No Education: Bachelor's Degree Difficulty w/ Childcare or Family Care: No Living arrangements: with family Occupation/Education: retired Spiritual care concerns: No Meds Home Medications and Allergies Home Medications ?Medication ?Instructions ?Recorded ?Confirmed ?Type amlodipine 10 mg tablet 10 mg PO DAILY 11/19/24 12/16/24 History atenolol 25 mg tablet 25 mg PO DAILY 11/19/24 12/16/24 History copper 5 mg tablet 5 mg PO DAILY 12/16/24 12/16/24 History selenium 200 mcg capsule 200 mcg PO DAILY 12/16/24 12/16/24 History turmeric 400 mg capsule 400 mg PO DAILY 12/16/24 12/16/24 History vitamin B complex 1 cap PO DAILY 12/16/24 12/16/24 History vitamin E 268 mg (400 unit) capsule 268 mg PO DAILY 12/16/24 12/16/24 History zinc 50 mg tablet 50 mg PO DAILY 12/16/24 12/16/24 History Allergies Allergy/AdvReac Type Severity Reaction Status Date / Time amoxicillin (From Amoxil) AdvReac Unknown upset Verified 12/16/24 11:01 stomach Exam Narrative: On exam he has internal rotation of his LEFT hip to 0, external rotation about 30 he has got a positive Stinchfield test grinding crepitus and pain with manipulation. He walks with an antalgic gait. Neurologically he is grossly intact. He has well-healed surgical scars on both knees. Eyes: General: appearance normal, both eyes and all related structures Neck: Neck: supple Resp: Effort & Inspection: normal respiratory effort Cardio: Rate: regular rate Rhythm: regular rhythm Assessment and Plan Assessment and plan (1) Osteoarthritis of left hip: Code(s): M16.12 - Unilateral primary osteoarthritis, left hip Status: Acute Assessment and Plan: Patient has an arthritic left hip. He has failed conservative treatment. He has pain with any activity in walks with an antalgic gait. He has very little motion interns rotation of his hip at all. He is very symptomatic and would like to consider left total hip arthroplasty. He has a right total hip. I have discussed this with him risks, benefits, limitations, and alternatives in detail. Will proceed per his request.
[2024-12-30] VITALS (13 sets, daily range): BP systolic 100–160; BP diastolic 59–77; PULSE 55–73; RESP 12–20; TEMP 36–36.6; O2SAT 93–100
--- NOTE | ~2024-12-30 | XR_ITS ---
EXAMINATION: XR surgery orthopedic DATE: 12/30/2024 09:01 INDICATION: Left total hip arthroplasty TECHNIQUE: 2 AP views of the pelvis were obtained during left total hip arthroplasty performed by Dr. Torres. Radiologist was not present for the procedure or imaging.. COMPARISON: 11/19/2024 FINDINGS: Interval placement of a noncemented left total hip arthroplasty, initially with a femoral broach sudd enly replaced the final femoral component. The arthroplasties in near-anatomic alignment. The acetabu lar component is affixed with at least a single screw. Partially visualized previously placed right t otal hip arthroplasty also in near-anatomic alignment. No fracture. Portions of the pelvis are exclud ed from the [id number] or obscured by a bolster. IMPRESSION: 1. New left total hip arthroplasty in near-anatomic alignment. No fracture. Reviewed, dictated and finalized at location A.
--- OUTSIDE RECORDS SUMMARY | 2024-12-30 01:19 | XMS_ITS | Patient Health Record ---
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) Active confirmed Problem Acquired hammer toe of left foot (32379642817215 03) Hammertoe of left foot (M20.42) Active confirmed Problem Arthritis of left foot (30091040515335 09) Arthritis of left foot (M19.072) Active confirmed Vital Signs Height 79 in 02/28/2024 Weight 264 lbs 02/28/2024 BMI 29.74 kg/m2 02/28/2024 Encounters Encounter Location Date Provider Diagnosis 3 COL HUMBERTO Snell [address] [place] [address] [address] [place] [address] 02/28/2024 Ishmael Torres Idiopathic neuropathy G60.9 ; Onychomycosis B35.1 and Onychogryphosis L60.2 1 OF [facility] [address] [address] 02/28/2024 Ishmael Torres Assessments Encounter Date Diagnosis [...] Date Coverage End Date [employer] [address] [place] [address] [id number] Polo Alvarez Self - patient is the insured Medical (General) History Surgical History Surgery Date(Month/Year)
--- OUTSIDE RECORDS SUMMARY | 2024-12-30 01:19 | XMS_ITS | Data Portability ---
Author Organization [facility] Francia BOWEN Address [address] [place] [address] Assessment No assessment recorded. Plan of Treatment Reminders Order Date Submit Date Provider Last Modified By Organization Details Last Modified Time Details Appointments None recorded . Lab None recorded . Referral None recorded . Procedures None recorded . Surgeries None recorded . Imaging US, doppler, venous 018 12/09/19 18 [email or web address] [facility], [address] [place] [address], [id number], 8 15:00:57 Medication Orders None recorded . Patient TargetsNo targets recorded. Patient Instructions Encounter Date Encounter Id Patient Instructions Last Modified By Organization Details Last Modified Time 12/08/2017 [id number] Patient to have venous doppler to rule out DVT. Patient to follow up with doppler. [email or web address] Not available 12/08/2017 17:32:21 Reason for Referral None Reported. Results Created Date Observation Date Name Description Value Unit Range Abnormal Flag Note LastModifiedBy Organization Detail LastModifiedTime 12/12/19 18 12/08/2017 US, doppl er, venou s No observ ation record ed. BARCODE [facility] [address] [place] [address], [address], 12/11/2017 10:28:14 Result Notes None recorded. 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 Active 2014 Not Available [facility] 7 00:52:17 Headache 21898346 Active 2012 Not Available [facility] 7 00:52:17 Screening for malignant neoplasm of colon Active 2013 Not Available [facility] 7 00:52:18 Allergic rhinitis 67563367 Active 2014 Not Available [facility] 7 00:52:18 Bronchitis 91275600 Active 2014 Not Available [facility] 7 00:52:18 Acute upper respiratory infection 31014130 Active 2013 Not Available [facility] 7 00:52:18 Hyperlipidemi a screening Active 2012 Not Available [facility] 7 00:52:18 Chronic sinusitis 33515162 Active 2014 Not Available [facility] 7 00:52:18 Pneumonia 826143759 Active 2014 Not Available [facility] 7 00:52:18 Difficulty speaking Active 2014 Not Available [facility] 7 00:52:18 Cough 01974722 Active 2014 Not Available [facility] 7 00:52:18 Laboratory test Active 2013 Not Available [facility] 7 00:52:18 Rosacea 962217202 Active 2014 Not Available [facility] 7 00:52:18 Problem Notes None recorded. Procedures Surgical History Date Name Laterality Status Provider Name and Address Organization Details Recorded Time Knee Surgery completed [facility] 12/08/2017 16:27:00 Imaging Results None recorded. Procedure Notes None recorded. Medical Equipment None Reported. Allergies Allergen ID Allergen Name Allergen Category Reaction Reaction Severity Criticality Documentation Date Start Date Code Code System Note Provider Name and Address Organization Details Recorded Time 744209 Cipro medicatio n Not available Not available Not available 04/25/20172014 95579 3 RxNorm Not Available [facility] 7 10:20:59 367772 amoxicill in medicatio n other Not available Not available 12/08/2017 723 RxNorm stoma ch disco mfort [facility] 8 16:08:50 Medications Name Sig Start Date [...] 50 mcg/actua tion nasal spray,ross pension; 2 [place]; NASAL; QHS; 30 days; Qty: 1 [ [...] Body height Body mass index (BMI) Systolic And Diastolic Provider Name and Address Organization Details Last Updated DateTime 8 457536. 12 g 97 % 97 % 89 /min 197.48 cm 30.3 kg/m2 132/74 mm[Hg] Veda Alves [place] [facility] 8 16:12:48 Social History None recorded. Functional Status None recorded. Mental Status None recorded. Family History Nothing Reported. Medical History No medical history recorded. Past Encounters Encounter ID Performer Location Encounter Start Date Encounter Closed Date Diagnosis/Indication Diagnosis SNOMED-CT Code Diagnosis ICD10 Code Diagnosis Note [id number] Tono Escalante MD [facility] [address] [place] [address] 12/08/2017 15:42:00 12/11/2017 15:00:56 Edema of lower extremity 132392529 R60.0 Health Concerns Section Related Observation LastModified by Organization Detai ls LastModified Time None Recorded Concern Status LastModified by Organization Details LastModified Time None Recorded Advance Directives Directive None Recorded Payers Insurance Date Sequence Insurance Name Policy Number Policy Patrick Covered Member ID Patrick Member ID Guarantor Name 08/03/2018 1 [facility] [id number] Polo Alvarez [id number] Polo Alvarez Notes Date Note Type [...] back in September 2017 FADI Fowler - SIF 12/08/2017 17:33:00
--- OUTSIDE RECORDS SUMMARY | 2024-12-30 01:20 | XMS_ITS | Data Portability ---
Author Organization [place] - [facility], [facility] Address [address] [place] [address] Care Team Providers Care Healthcare Marketer Name Role Phone ROSI ZAZUETA Doughnut Fryer RADHA TORRES Primary Care Provider [phone] Tester [facility] BRANDEE OLIVERA Laceworker Assessment Encounter Date Assessment Date Assessment LastModified [...] trans-tho isaac geiger (TTE) (PROC) 2024 025 Leroy Trent PA-C, [address], [place], [address], 11/24/2024 14:11:12 trans-tho racbhanu echocardi ogram (TTE) (PROC) 2023 024 LISSMICH Trent PA-C, [address], [address], [place], [address], 06/03/2024 09:07:22 Surgeries None recorded. Imaging None recorded. Medication Orders amlodipin e 10 mg tablet 2024 025 [facility], [address], [place], [place], [id number], 11/12/2024 14:06:03 amlodipin e 2.5 mg tablet [email or web address] [facility], [address] , [place], [place], [id number], 10/15/2024 09:31:32 atenolol 25 mg tablet 2023 024 [facility], [address] [place], [place], [id number], 09/21/2024 13:59:38 Patient TargetsNo targets recorded. Patient Instructions Encounter Date Encounter Id Patient Instructions Last Modified By Organization Details Last Modified Time 05/14/2024 [id number] learning about healthy weight Not available 05/14/2024 10:53:45 06/25/2024 [id number] learning about healthy weight Not available 06/25/2024 10:19:25 Reason for Referral None Reported. Results Created Date Observation Date Name Description Value Unit Range Abnormal Flag Note LastModifiedBy Organization Detail LastModifiedTime 06/02/2005/31/2024 trans -thor acic echoc ardio gram (TTE) (PROC ) No observ ation record ed. [email or web address] Leroy Trent PA-C [address], [place], [address], 11/24/2024 14:11:10 06/03/20 24 05/31/2024 trans -thor acic echoc ardio gram (TTE) (PROC ) No observ ation record ed. [email or web address] Leroy Trent PA-C [address] [address], [place], [address], 11/24/2024 14:11:10 06/03/20 24 05/31/2024 trans -thor acic echoc ardio gram (TTE) (PROC ) No observ ation record ed. [email or web address] Leroy Trent PA-C [address] [facility] [address], [place], [address], 11/24/2024 14:11:09 Result Notes None recorded. Problems Name Problem SNOMED Code Status Onset Date Resolution Date Notes Provider Name and Address Organization Details Recorded Time Hyperlipi demia 80433711 Active 2022 Jennifer Quintanilla INDUSTRIAL MACHINE SYSTEM TECHNICIAN [address] [place] [address], [address] , [facility] 3 09:27:30 Coronary arteriosc lerosis 50066715 Active 2022 Jennifer Quintanilla NP [address] [place] [address], [address] , [facility] 3 09:27:15 Snoring 51040946 Active 2022 Jennifer Quintanilla INDUSTRIAL MACHINE SYSTEM TECHNICIAN [address] [place] [address], [address] , [facility] 3 09:32:34 Polyp of left nasal cavity 880884045 Active 2022 Yanely Blackburn null, [facility] 3 08:46:35 Polyp of right nasal cavity 835049227 Active 2022 Yanely Blackburn null, [facility] 3 08:46:43 Deviated nasal septum 285135279 Active 2022 Yanely Blackburn null, [facility] 3 08:46:59 Hypertrop hy of nasal turbinate s 17938860 Active 2022 Yanely Blackburn null, [facility] 3 08:47:10 Allergic rhinitis 15181894 Active 2022 Yanely Blackburn null, [facility] 3 08:47:18 Obstructi ve sleep apnea syndrome 40600727 Active 2022 Yanely Blackburn null, [facility] 3 08:41:52 Osteoarth ritis of right hip joint 42887802770 9107 Active 2022 DEONNA Baker [address], [place], [address] , [facility] 3 21:10:27 Acute sinusitis 10418652 Completed 202311/21/2024 Betina Díaz null, [facility] 5 13:23:19 Pain in both feet 47875165001 953566 Active 2023 DEONNA Baker [address], [place], [address] , [facility] 4 10:39:35 Paresthes ia of lower extremity 025747739 Active 2023 DEONNA Baker [address], [place], [address] , [facility] 4 10:43:29 Puncture wound of right foot 42136723422 107095 Completed 202311/21/2024 Betina trejo, [facility] 5 13:23:49 Tight chest 84576343 Active 2023 DEONNA Baker [address], [place], [address] , [facility] 4 11:08:14 Elevated blood-pre ssure reading without diagnosis of hypertens ion 839032633 Completed 202311/24/2024 Radha Torres NP [address], [place], [address] , [facility] 5 14:14:40 Chest pain 43827331 Active 2023 DEONNA Baker [address], [place], [address] , [facility] 4 14:29:48 Aortic root dilatatio n 140338036 Active 2024 ROSI ZAZUETA MD [address] [place], [address] , [facility] 5 10:21:40 Mitral valve regurgita tion 72363869 Active 2024 ROSI ZAZUETA MD [address] [place], [address] , [facility] 5 10:22:31 Pain of shoulder region 08051055 Active 2024 Breanna Owens ANP-C [address] [place] [address], [address] , [facility] 5 12:03:19 Osteoarth ritis of left hip joint 03919736227 9108 Active 2024 Radha Torres NP [address] [place] [address], [address] , [facility] 5 14:15:40 Family history of cancer of colon 293203210 Active 2017 Jennifer Quintanilla NP [address] [place] [address], [address] , [facility] 3 09:27:24 Carpal tunnel syndrome 99783948 Active 2020 Jennifer Quintanilla NP [address] [place] [address], [address] , [facility] 3 09:27:11 Essential hypertens ion 33811630 Active 2021 Jennifer Quintanilla INDUSTRIAL MACHINE SYSTEM TECHNICIAN [address] [place] [address], [address] , [facility] 3 09:27:20 Hyperglyc emia 18030627 Active 2020 Jennifer Quintanilla NP [address] [place] [address], [address] , [facility] 3 09:27:26 COVID-19 493936299 Completed 201903/28/2020 Not Available [facility] 22:08:39 Problem Notes None recorded. Procedures Surgical History Date Name Laterality Status Provider Name and Address Organization Details Recorded Time 02/28/20 Medicare Wellness CPT Code, Initial completed Alexia Winston, RN [address] [place], [address], [facility] 01/09/2023 16:14:53 07/22/19 colonoscopy completed Betina Díaz [facility] 11/21/2024 13:36:10 Hernia Repair completed Not Available [facility] 06/26/2022 22:09:50 Other completed Not Available [facility] 01/2023 22:09:50 Shoulder joint surgery completed Not Available [facility] 06/26/2022 22:09:50 Knee arthroscopy/ric prakash completed Not Available [facility] 06/26/2022 22:09:50 Carpal tunnel surgery completed Not Available [facility] 06/26/2022 22:09:50 Imaging Results None recorded. Procedure Notes None recorded. Medical Equipment None Reported. Allergies Allergen ID Allergen Name Allergen Category Reaction Reaction Severity Criticality Documentation Date Start Date Code Code System Note Provider Name and Address Organization Details Recorded Time 044866 amoxicill in medicatio n diarrhea Not available low 06/26/2022 723 RxNorm Connie Saini NP [address] [place] [address], [address], [facility] 17:41:43 Medications Name Sig Start Date Stop [...] Relief 50 mcg/actuati on nasal spray,suspe nsion [place] 1 spray every day by intranasa l [...] blood by Pulse oximetry Heart rate Systolic And Diastolic Provider Name and Address Organization Details Last Updated DateTime 5 195.58 cm 31.8 kg/m2 240447. 76 g 98.6 [degF] 94 % 94 % 59 /min 163/83 mm[Hg] [facility] 5 10:11:50 Date Recorded Body height Body mass index (BMI) Body weight Body temperature Heart rate Oxygen saturation Oxygen saturation in Arterial blood by Pulse oximetry Respiratory rate Systolic And Diastolic Provider Name and Address Organization Details Last Updated DateTime 5 195.58 cm 31.9 kg/m2 570941. 35 g 97.8 [degF] 68 /min 96 % 96 % 18 /min 172/84 mm[Hg] Carmelita Tima [facility] 5 10:31:35 Date Recorded Body height Body mass index (BMI) Body weight Body temperature Heart rate Oxygen saturation Oxygen saturation in Arterial blood by Pulse oximetry Respiratory rate Systolic And Diastolic Provider Name and Address Organization Details Last Updated DateTime 5 195.58 cm 30.6 kg/m2 496004. 83 g 96.9 [degF] 57 /min 95 % 95 % 18 /min 168/77 mm[Hg] Valerie Hernandezerick [facility] 5 09:23:21 Date Recorded Body height Body mass index (BMI) Body weight Body temperature Heart rate Respiratory rate Oxygen saturation Oxygen saturation in Arterial blood by Pulse oximetry Systolic And Diastolic Provider Name and Address Organization Details Last Updated DateTime 5 195.58 cm 29.3 kg/m2 764349. 32 g 98.6 [degF] 58 /min 18 /min 99 % 99 % 128/80 mm[Hg] Veda Caba [facility] 5 11:06:33 Date Recorded Body height Body mass index (BMI) Body weight Body temperature Oxygen saturation Oxygen saturation in Arterial blood by Pulse oximetry Heart rate Systolic And Diastolic Provider Name and Address Organization Details Last Updated DateTime 4 195.58 cm 31.3 kg/m2 993197. 39 g 97.7 [degF] 93 % 93 % 76 /min 163/90 mm[Hg] [facility] 4 10:16:46 Social History Question Answer Notes LastModified by Organizat ion Details LastModified Time Tobacco Smoking Status Never Smoker Not Available [facility] 06/26/2022 22:05:44 Do You Have An Advance Directive? No AD Packet Given [email or web address] Information not available 02/27/2023 Are You Blind Or Do You Have Difficulty Seeing? No [email or web address] Information not available 02/27/2023 What Is Your Level Of Caffeine Consumption? Occasional [email or web address] Information not available 09/16/2023 How Much Tobacco Do You Chew? None MIGRATION.96159 95579 Information not available 06/26/2022 In The 14 Days Before Symptom Onset, Have You Had Close Contact With A Laboratory-confi rmed COVID-19 While That Case Was Ill? No MIGRATION.08778 84439 Information not available 06/26/2022 In The 14 Days Before Symptom Onset, Have You Had Close Contact With A Person Who Is Under Investigation For COVID-19 While That Person Was Ill? No MIGRATION.12902 78553 Information not available 06/26/2022 Are You Deaf Or Do You Have Serious Difficulty Hearing? No MIGRATION.44602 60798 Information not available 06/26/2022 What Type Of Diet Are You Following? REGULAR MIGRATION.72471 66353 Information not available 06/26/2022 Have There Been Any Changes To Your Family Or Social Situation? No Information not available 06/13/2023 What Is The Fluoride Status Of Your Home? Non-fluoridated Information not available 11/21/2024 Which Of Your Hands Is Dominant? Right MIGRATION.39650 64251 Information not available 06/26/2022 Do You Use Insect Repellent Routinely? No Information not available 11/21/2024 Where Do You Live? SingleLevelHouse Information not available 10/15/2024 Are You In An Abusive/frighten ing Relationship? No MIGRATION.70160 70337 Information not available 06/26/2022 Do You Feel Safe At Home Yes Information not available 11/21/2024 Do You Feel Hopeless Or Helpless No Information not available 06/13/2023 Have You Had Thoughts Of Suicide? No MIGRATION.57169 63118 Information not available 06/26/2022 Are You Having Any Suicidal Thoughts Now? No MIGRATION.06580 29537 Information not available 06/26/2022 Have You Previously Attempted Suicide? No MIGRATION.56124 34017 Information not available 06/26/2022 Do You Have A Plan To Hurt Yourself Or Others? No Information not available 06/13/2023 Has A Family Member Or Someone Close To You Committed Suicide Or Have You Been A Witness To Suicide? No MIGRATION.99854 59186 Information not available 06/26/2022 Have You Fallen In The Last 3 Months? No MIGRATION.66371 64883 Information not available 06/26/2022 Are You Blind Or Do You Have Difficulty Seeing? No MIGRATION.99451 33776 Information not available 06/26/2022 Do You Have A Plan To Hurt Yourself Or Others? No MIGRATION.42137 72580 Information not available 06/26/2022 Do You Feel Hopeless Or Helpless? No MIGRATION.17508 02202 Information not available 06/26/2022 What Was The Date Of Your Most Recent Tobacco Screening? 11/22/2024 Information not available 11/21/2024 Have You Ever Been Counseled For Unhealthy Alcohol Use? No MIGRATION.91565 65233 Information not available 06/26/2022 Do You Have [...] How Much Tobacco Do You Smoke? No MIGRATION.72544 79895 Information not available 06/26/2022 Do You Participate In Social Media? Yes Information not available 06/13/2023 Do You Use Sunscreen Routinely? No Information not available 11/21/2024 Has Tobacco Cessation Counseling Been Provided? Yes [email or web address] Information not available 05/14/2024 On What Date Was Tobacco Cessation Counseling Provided? 06/25/2024 Information not available 06/25/2024 How Many Years Have You Smoked Tobacco? 0 MIGRATION.14356 62573 Information not available 06/26/2022 Have You Recently Traveled Abroad? No Information not available 11/21/2024 Do You Have Difficulty Walking Or Climbing Stairs? No MIGRATION.33220 26613 Information not available 06/26/2022 Are You Currently In School? No MIGRATION.31395 81343 Information not available 06/26/2022 Do You Have Any Dietary Restrictions? No Information not available 06/13/2023 Sex: Male Functional Status Question Answer Note LastModified by Kiko Details LastModified Time Do you use any illicit or recreational drugs? No MIGRATION.05160 81914 Information not available 06/26/2022 Do you or have you ever used any other forms of tobacco or nicotine? No MIGRATION.09712 34268 Information not available 06/26/2022 What is your level of alcohol consumption? Occasional MIGRATION.64339 80946 Information not available 06/26/2022 Do you or have you ever used smokeless tobacco? 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 No MIGRATION.96840 26995 Information not available 06/26/2022 Are you able to walk? YESWOREST MIGRATION.13949 31354 Information not available 06/26/2022 Do you have difficulty doing errands alone? No MIGRATION.60646 79359 Information not available 06/26/2022 Are you able to care for yourself? Yes Information n ot available 07/29/2022 Do you have difficulty dressing or bathing? No MIGRATION.84188 95297 Information not available 06/26/2022 Do you or have you ever used e-cigarettes or vape? Never used electronic cigarettes MIGRATION.47583 69963 Information not available 06/26/2022 What is your exercise level? Occasional MIGRATION.03156 28420 Information not available 06/26/2022 Mental Status Question Answer Note LastModified by Organizat ion Details LastModified Time Do you feel stressed (tense, restless, nervous, or anxious, or unable to sleep at night)? [id number] [email or web address] Information not available 02/02/2024 Do you have difficulty concentrating, remembering or making decisions? No MIGRATION.90924013 01 Information not available 06/26/2022 Family History Relationship Description Onset Age of this Age Resolved Age Notes LastModified by Organization Details LastModified Time Sister Malignant neoplastic disease colon MIGRATION.209 [id number] Not available 06/26/2022 22:04:59 Father Heart disease CHF MIGRATION.837 [id number] Not available 06/26/2022 22:04:59 Medical History Condition Response ARTHRITIS Y RHEUMATIC FEVER N USE OF BLOOD THINNERS N SKIN PROBLEMS N PROSTATE N HEARTBURN / REFLUX N RADIATION / CHEMOTHERAPY N EYE PROBLEMS N BLOOD CLOTS N ASTHMA N HEPATITIS / LIVER DISEASE N PULMONARY DISEASE N CAROTID BLOCKAGE N GOUT N SLEEP DISORDER N FEMALE PROBLEMS / INFECTIONS N DEPRESSION (INCLUDING POST ) N BOWEL PROBLEMS N BACK / NECK PROBLEMS Y HAVE YOU BEEN HOSPITALIZED OR SEEN IN [facility] IN THE PAST YEAR ? N DEMENTIA N HERPES N THYROID DISEASE N ATHEROSCLEROSIS N ULCERS Y VASCULAR DISEASE N Blood Disorder N DIZZINESS N BREAST PROBLEMS N KIDNEY DISEASE N DIALYSIS N HYPERTENSION N CARDIAC ARRHYTHMIA N CANCER: SPECIFY N OBESITY N ANXIETY DISORDER N PNEUMONIA N ANEMIA/BLOOD DISORDER N ANEURYSM N PULMONARY EMBOLISM N BRONCHITIS N OSTEOPOROSIS N URINARY/BLADDER/KIDNEY PROBLEMS N TUBERCULOSIS N Immunizations Vaccine Type Date Status Note Provider Nam e and Address Organization Details Recorded Time Tdap 4 completed Carmelita Alfred [facility] 02/20/2024 17:42:11 Influenza, high-dose, quadrivalent, PF 2 completed Not Available [facility] 06/26/2022 22:09:41 pneumococcal polysaccharide PPV23 0 completed Not Available [facility] 06/26/2022 22:09:41 Pneumococcal conjugate PCV 13 9 completed Not Available [facility] 06/26/2022 22:09:41 Influenza, split virus, quadrivalent, PF 9 completed Not Available [facility] 06/26/2022 22:09:42 influenza, unspecified formulation 3 completed Veda trejo [facility] 11/22/2024 11:01:31 Influenza, split virus, trivalent, preservative 4 completed Carmelita Alfred null, [facility] 02/02/2024 10:13:02 Influenza, split virus, quadrivalent, PF 0 completed Carmelita Alfred null, [facility] 02/02/2024 10:13:02 Influenza, split virus, quadrivalent, PF 4 completed Carmelita Alfred null, [facility] 02/02/2024 10:13:02 zoster recombinant 3 completed Veda Caba null, [facility] 11/22/2024 11:01:31 zoster recombinant 4 completed Betina Bre null, [facility] 11/21/2024 13:31:13 Past Encounters Encounter ID Performer Location Encounter Start Date Encounter Closed Date Diagnosis/Indication Diagnosis SNOMED-CT Code Diagnosis ICD10 Code Diagnosis Note [id number] ADRI Sutton [address] [address] 05/02/2018 00:00:00 05/02/2018 15:30:37 [id number] ADRI Sutton [address] [address] 09/10/2018 00:00:00 09/13/2018 15:37:47 [id number] Janeen Ambrose MD [address] [address] 05/03/2019 00:00:00 05/03/2019 11:32:28 [id number] ADRI Sutton [address] [address] 08/24/2019 00:00:00 08/27/2019 16:59:25 [id number] Janeen Ambrose MD [address] [address] 05/08/2020 00:00:00 05/08/2020 17:13:58 [id number] ADRI Sutton [address] [place] [address] 06/01/2020 00:00:00 06/04/2020 12:13:47 [id number] Janeen Ambrose MD [facility] [address] [place] [address], [place] [address] 06/05/2020 00:00:00 06/05/2020 09:25:45 [id number] Janeen Ambrose MD [facility] [address] [place] [address] 06/25/2020 00:00:00 06/25/2020 11:12:07 [id number] Janeen Amborse MD [facility] [address] [place] [address] 07/13/2020 00:00:00 07/13/2020 16:16:26 [id number] Janeen Ambrose MD [facility] [address] [place] [address] 10/12/2020 00:00:00 10/12/2020 09:18:48 [id number] Janeen Ambrose MD [facility] [address] [place] [address] 12/04/2020 00:00:00 12/04/2020 11:36:52 [id number] Janeen Ambrose MD [facility] [address] [place] [address] 02/01/2021 00:00:00 02/01/2021 09:57:11 [id number] Janeen Ambrose MD [facility] [address] [place] [address] 02/04/2021 00:00:00 02/04/2021 15:40:06 [id number] Janeen Ambrose MD [facility] [address] [place] [address] 03/23/2021 00:00:00 03/23/2021 09:39:29 [id number] Heather Keith [facility] [address] [place] [address] 06/26/2021 00:00:00 07/03/2021 15:23:32 [id number] Janeen Ambrose MD [address] [address] 07/27/2021 00:00:00 07/27/2021 15:35:08 [id number] STEPHEN SuttonP [address] [address] 12/13/2021 00:00:00 12/14/2021 14:58:52 [id number] Natalee Galvin NP [address] [address] 04/15/2022 00:00:00 04/15/2022 17:28:59 [id number] Janeen Ambrose MD [address] [address] 04/28/2022 00:00:00 04/28/2022 10:25:03 [id number] Janeen Ambrose MD [address] [address] 07/29/2022 09:14:54 07/29/2022 10:33:17 Hyperlipidemia 00816325 E78.5 Diet controlled Educated patient to the benefit of exercise and low cholestero l dietPt verbalized understand ingNotify any CP, SOB, or changesChe ck labs. Essential hypertension 09057660 I10 142/80 today, BP's usually well controlled , likely white coat syndromeHC TZ 12.5 mgContinue current medication s Coronary arteriosclerosis 62610392 I25.10 declines f/u with cardio. check routine labs Snoring 90820887 R06.83 WIll refer to ENT [id number] Breanna Owens, ANP-C [address] [address] 02/27/2023 09:58:25 02/27/2023 11:34:55 Adult health examination 135907478 Z00.00 Patient presented to office today for [...] olguin's BMI is 30.8. Screening for disorder 751098374 Z13.89 Body mass index 30+ - obesity 601516510 Z68.30 Essential hypertension 83202061 I10 HTN is uncontroll ed, he is refusing to take any medication s for this. We did discuss the potential adverse effects of untreated HTN. Hyperlipidemia 78586996 E78.5 He refuses to take medication s to lower his cholestero l. We did discuss the potential adverse effects not controllin g his lipids. Coronary arteriosclerosis 42375333 I25.10 Hx: of CAD, he refuses to follow with cardiology . Currently asymptomat ic. Obstructiv e sleep apnea syndrome 94464390 G47.33 Moderate TI per sleep medicine. Pt. refuses CPAP. [id number] Janeen Ambrose MD [address] [address] 06/13/2023 10:24:37 06/13/2023 22:06:22 Osteoarthritis of right hip joint 3022800817 71317 M16.11 He is medically cleared for right total hip replacemen t 06/22. Form completed, will fax to Dr. Torres's office as requested. Essential hypertension 29895059 I10 BP is normal today without medication . [id number] JOSEE BACON MD [address] [address] 09/16/2023 10:27:58 09/16/2023 12:13:21 Acute sinusitis 14829641 J01.90 Advised pt to increase oral hydration, , nasal rinse, alt OTC ibuprofen or Tylenol PRN, rest, full course of abx & decongesta nt f/u PRN or if sx persist/wo rsen [id number] Janeen Ambrose MD [address] [address] 02/02/2024 10:09:55 02/02/2024 12:34:51 Pain in both feet 1027666687 4835982 M79.672 Will refer to podiatry, he has seen Dr. Torres in the past. Paresthesi a of lower extremity 166533653 R20.2 Labs ordered, further recommenda tions pending results. Screening for disorder 844863918 Z13.89 Hyperlipidemia 70548477 E78.5 He refuses to take medication s to lower his cholestero l. We did discuss the potential adverse effects high cholestero l. Will update labs. Screening for malignant neoplasm of prostate 528300497 Z12.5 [id number] Manuela Shearer MD [address] [address] 02/20/2024 17:05:04 02/20/2024 18:29:01 Puncture wound of right foot 2156951071 [id number] S91.331A -Will treat prophylact ically d/t puncture [...] and is agreeable to plan of care. [id number] Janeen Ambrose MD [address] [address] 03/14/2024 10:22:34 03/14/2024 18:03:01 Chest pain 42898079 R07.9 EKG shows no acute changes when compared to previous from 2018. Will refer to cardiology for further evaluation and probable stress test. [id number] ROSI [facility]A [facility] [address] [address] 05/14/2024 10:05:50 05/14/2024 11:08:26 Chest pain 11336332 R07.9 Previous eval 2019. ECG 03/14/2024 no acute changes. Given CP is sporadic only about 2-3 times a month and distinctly not exertion related. Prior cath 2019 was clean. Check echo. Body mass index 30+ - obesity 658041027 Z68.31 BMI 31.3 Essential hypertension 09782104 I10 Not controlled today 163/90. Prior BP 146/ D. Not on any BP medication . Consider anti-hyper tensive rx if serial BP's are high. He insists this is white coat syndrome. Low dose beta leida trial. Hyperglycemia 39094152 R 73.9 Hyperlipidemia 93224581 E78.5 Had FLP this past summer: TC 230, LDL 150. HDL 58. Placed on fish oil by PCP. LDL goal 100. If not achieved by omega 3 fish oil, statin should be considered . Low carbohydra te diet recommende d and discussed today. Wants to wait to see what his FLP results are on krill oil before moving on to statins. [id number] ROSI ZAZUETA MD [facility] [address] [place] [id number] 06/25/2024 09:56:16 06/25/2024 10:29:07 Body mass index 30+ - obesity [id number] Z68.31 BMI 31.8 Chest pain [id number] R07. 9 Previous eval 2018. ECG 03/14/2024 no acute changes. Given CP is sporadic only about 2-3 times a month and distinctly not exertion related. Prior cath 2019 was clean. ECHO showed normal LV and RV and mild MR and PI but aortic root enlarged 4.3 cm. Ascending aorta 3.7 cm. Essential hypertension [id number] I10 Not controlled today 163/83. Prior BP 146/ D. Added BP medication atenolol last month. Must now consider further anti-hyper tensive rx given on going HTN and aortic root dilatator. Plan add amlodipine 2.5 mg a day. Hyperglycemia 22150628 R 73.9 Hyperlipidemia 76370477 E78.5 Had FLP this past summer: TC [...] on to statins. Aortic tatyana t dilatation [id number] I77.810 Incidental finding on 05/2024 echo. Aggressive BP control and follow up ECHO 05/2025. Mitral mai ve regurgitation [id number] I34.0 1+ on 2023 echo. [id number] Breanna Owens, ANP-C [facility] [address] [place] [address] 07/12/2024 10:18:55 07/15/2024 02:20:15 Essential hypertension [id number] I10 HTN is not controlled . We had a long discussion about the importance of controllin g his BP. He will start taking the amlodipine in addition to atenolol. He will check his BP daily and call in 1 week with readings. Aortic tatyana t dilatation [id number] I77.810 He will follow up with cardiology as ordered. We discussed that this will be monitored with routine echo. Pain of oulder region [id number] M25.519 Intermitte nt posterior shoulder pain is likely related to Cervical DDD. He does see a chiropract or for arthritis in the neck. He declines any imaging and will f/u with any worseing of his symptoms. [id number] ROSI ZAZUETA MD DISP_RB [facility] [address] [place] [phone] 10/15/2024 09:15:58 10/15/2024 09:41:54 Chest pain [id number] R07.9 Previous eval 2018. ECG 03/14/2024 no acute changes. Given CP is sporadic only about 2-3 times a month and distinctly not exertion related. Prior cath 2019 was clean. ECHO showed normal LV and RV and mild MR and PI but aortic root enlarged 4.3 cm. Ascending aorta 3.7 cm. Essential hypertension 62615597 I10 Not controlled again today 163/83. Prior BP 146/ D. Added BP medication atenolol previously . Increase amlodipine to 10 mg. Hyperlipidemia 09157569 E78.5 Had FLP this past summer: TC [...] on to statins. Mitral mai ve regurgitation [id number] I34.0 1+ on 2023 echo. Hyperglycemia 74113659 R 73.9 Aortic tatyana t dilatation [id number] I77.810 Incidental finding on 05/2024 echo. Aggressive BP control and follow up ECHO 05/2025. [id number] Radha Torres NP [facility] [address] [place] [address] 11/22/2024 10:50:33 11/25/2024 01:53:17 Active immunization [id number] Z23 declined today Essential hypertension [id number] I10 - BP 128/80 today- amlodipine 10mg daily- atenolol 25mg daily Osteoarthr itis of left hip joint [id number] 10963 M16.12 - THR left, scheduled for 12-30-24 Preoperative state [id number] Z01.818 - will complete the form from [facility] Health Concerns Section Related Observation LastModified by Organization Detai ls LastModified Time None Recorded Concern Status LastModified by Organization Details LastModified Time None Recorded Advance Directives Directive N: AD packet given Payers Insurance Date Sequence Insurance Name Policy Number Policy Patrick Covered Member ID Patrick Member ID Guarantor Name 07/28/2022 1 [place] [id number] Polo Alvarez [id number] Polo Alvarez 09/16/2023 1 [place] Polo Alvarez [id number] Polo Alvarez 09/16/2023 2 [place] [id number] Pool Alvarez [id number] Polo Alvarez 01/24/2024 [employer] - MEDICARE - PART A - PART A - [facility] [place] (MEDICARE) Polo Alvarez [id number] Polo Alvarez 11/20/2024 1 [employer] (MEDICARE REPLACEMENT/ ADVANTAGE - PPO) [id number] Polo Alvarez [id number] Polo Alvarez Notes Date Note Type Note [...] 2 times a month. ROSI ZAZUETA MD [address] [place], [address], [facility] 05/14/2024 10:57:14 06/25/2024 text/html Here to review E CHO LVEF 60-65%. Mild MR, Aortic root 4.3 cm and ascending aorta, 3.7 cm. ROSI ZAZUETA MD [address] [place], [address], [facility] 06/25/2024 10:26:07 07/12/2024 text/html 69 year old [...] radiating into his arms or hands. Breanna Owens, ANP-C [address] [place] [address], [phone], [facility] 07/12/2024 12:04:54 10/15/2024 text/html Lost 10 pounds since last OV. Bp remains high, however. ROSI ZAZUETA MD [address] [place], [address], [facility] 10/15/2024 09:35:42 11/22/2024 text/html 69 y.o. male presents to clinic to establish care. He has no concerns other than his OA and hip pain. He is scheduled for a left hip replacement at [facility] on December 30. Denies chest pain, sob, dizziness. BP at home 120-130s/70s; 128/80 in office today Radha Torres NP [address] [place] [address], [phone], [facility] 11/24/2024 14:19:09
--- OUTSIDE RECORDS SUMMARY | 2024-12-30 01:20 | XMS_ITS | Clinical Summary ---
Author Organization [facility] Address [address] [place] [address] Care Team Providers Care Nursery Supervisor Name Role Phone Huyen Dawson NP Primary Care Provider [phone]- [phone] Allergies Active Allergy Reactions Criticality Noted Date [...] helpful, I would recommend a referral to [facility]. 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
--- OUTSIDE RECORDS SUMMARY | 2024-12-30 01:20 | XMS_ITS | Referral Summary ---
Author Organization [facility] [place] [facility] Address [address] [place] [address] Care Team Providers Care Paraeducator Name Role Phone Huyen Dawson NP Primary Care Provider +1- [phone] Allergies Active Allergy Reactions Criticality Noted Date [...] helpful, I would recommend a referral to [facility]. 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
--- OUTSIDE RECORDS SUMMARY | 2024-12-30 01:20 | XMS_ITS | Clinical Summary ---
Author Organization [facility] Address [address] [place] [address] Care Team Providers Care Cement Grinding Mill Operator Name Role Phone Huyen Dawson BANQUET MANAGER Primary Care Provider Allergies Active Allergy Reactions Criticality Noted Date Comments Amoxicillin GI Upset 07/16/2019 Medications No known medications Family History Medical History Relation Comments Cancer Sister Relation Status Comments Sister Social History Tobacco Use Types Packs/Day Years Used Date Smoking Tobacco: Never Smokeless Tobacco: Never Alcohol Use Standard Drinks/Week Comments Never 0 (1 standard drink = 0.6 oz pur e alcohol) AUDIT-C Answer Date Recorded Frequency of Alcohol Consumption Never 07/17/2019 Average Number of Drinks Not on file 020 Frequency of Binge Drinking Not on file 06/20 Sex and Gender Information Value Date Recorded Sex Assigned at Not on file Legal Sex Male 6:24 PM CDT Gender Identity Not on file Sexual Orientation Not on file Last Filed Vital Signs Vital Sign Reading Time Taken Comments Blood Pressure 126/85 07/22/2019 10:40 AM ETHANOL QUALITY LEADER Pulse 66 07/22/2019 10:40 AM ETHANOL QUALITY LEADER Temperature 36.3 C (97.4 F) 07/22/2019 10:40 AM ETHANOL QUALITY LEADER Respiratory Rate 18 07/22/2019 10:40 AM ETHANOL QUALITY LEADER Oxygen Saturation 97% 07/22/2019 10:40 AM ETHANOL QUALITY LEADER Inhaled Oxygen Concentration - - Weight 120.2 kg (265 lb) 07/17/2019 11:15 AM ETHANOL QUALITY LEADER Height 200.7 cm (6' 7) 07/17/2019 11:15 AM ETHANOL QUALITY LEADER Body Mass Index 29.85 07/17/2019 11:15 AM ETHANOL QUALITY LEADER Plan of Treatment Health Maintenance Due Date Last Done Comments Hepatitis C 02/06/1972 DTaP, Tdap and Td Vaccines ( 1 - Tdap) 1973 Zoster Vaccines (1 of 2) 02/06/2004 Annual Medicare Wellness Visit 2019 COVID-19 Vaccine ( - 2023-2 5 season) 2024 RSV Immunization or 60+ Years (1 - 1-dose 75+ series) 2029 Colorectal Cancer Screening Colonoscopy (10 Years) 07/22/2029 07/22/2019, 07/22/2019 Pneumococcal Vaccine: 50+ Years Completed 05/08/2020, 05/03/2019 Meningococcal B Vaccine Aged Out No l onger eligible based on patient's age to complete this topic Meningococcal Vaccine Aged Out No doug melia eligible based on patient's age to complete this topic RSV Immunizations Under 20 Months Aged Out No longer eligible b ased on patient's age to complete this topic Procedures Procedure Name Priority Date/Time Associated Diagnosis Comments COLONOSCOPY Routine 07/22/2019 9:11 AM ETHANOL QUALITY LEADER from Last 3 Months or Most Recently Relevant to Health Maintenance Insurance [facility] MEDICARE Care Teams Cement Grinding Mill Operator Relationship Specialty Start Date End Date Huyen Dawson NP PCP - General NURSE PRACTITIONER 09/14/20
[2024-12-30] MEDS: TRANEXAMIC ACID 1,000MG/ISO100 1,000 MG/100 ML BAG 200 MG IVPB (06:25)
[2024-12-30] MEDS: LACTATED RINGERS 1,000 ML 30 ML IV CONT ×2 (06:25→09:27)
[2024-12-30] MEDS: VANCOMYCIN 1,750 MG/NS 500 ML BAG 250 MG IVPB (06:25)
--- NOTE | 2024-12-30 06:36 | P.PNAN_ITS ---
Anes - Initial Pre Proc Eval Procedure: Operation Date: 12/30/24 07:30 Proposed Procedures p Left Total Hip Arthroplasty - Anshu Torres MD Date/Time: 12/30/24 06:36 Surgeon: Anshu Torres MD Pre Op Diagnosis: left oa hip Patient Data Age: 69 Gender: M Height: 1.96 m Weight: 112.3 kg Last Vital Signs Temp 36.8 C 12/16/24 11:44 Pulse 55 L 12/16/24 11:44 Resp 18 12/16/24 11:44 BP 128/75 12/16/24 11:44 Pulse Ox 97 12/16/24 11:44 O2 Del Method Room Air 12/16/24 11:44 Allergies Allergy/AdvReac Type Severity Reaction Status Date / Time amoxicillin (From Amoxil) AdvReac Unknown upset Verified 12/16/24 11:01 stomach Home Medications ?Medication ?Instructions ?Recorded ?Confirmed ?Type amlodipine 10 mg tablet 10 mg PO DAILY 11/19/24 12/30/24 History atenolol 25 mg tablet 25 mg PO DAILY 11/19/24 12/30/24 History copper 5 mg tablet 5 mg PO DAILY 12/16/24 12/16/24 History selenium 200 mcg capsule 200 mcg PO DAILY 12/16/24 12/16/24 History turmeric 400 mg capsule 400 mg PO DAILY 12/16/24 12/30/24 History vitamin B complex 1 cap PO DAILY 12/16/24 12/30/24 History vitamin E 268 mg (400 unit) capsule 268 mg PO DAILY 12/16/24 12/30/24 History zinc 50 mg tablet 50 mg PO DAILY 12/16/24 12/30/24 History Patient hx anesthesia problems: none Family hx anesthesia problems: none Results Review: All pre-operative results and documents have been reviewed as part of the pre- operative evaluation. [facility] Past Medical History Medical History (Updated 12/30/24 @ 06:37 by Edvin Lopez DO) Hypertension TI (obstructive sleep apnea) Overweight Surgical History Surgical History History of right hip replacement 06/22/23 History of hernia repair History of knee replacement bilateral- Dr Torres History of rotator cuff surgery right x2 left History of surgery on lower extremity quad muscle repair- bilateral Social History Social History Smoking status: Never smoker Second hand tobacco smoke exposure: No Additional smoking assessment comments: PT DENEIS ALL FORMS OF TOBACCO USE Alcohol intake: current Drinks per week: 1 Alcohol use details: occasionally Substance use: never Substance use type: does not use Do You Feel Safe in your Home?: Yes Lack of Transportation: No Lack of Food: Never True Current Housing: I Have Housing Concerned About Future Housing: No Difficulty Paying Gas/Electric Bills: No Difficulty Paying for Meds: No Currently Unemployed: No Education: Bachelor's Degree Difficulty w/ Childcare or Family Care: No Living arrangements: with family Occupation/Education: retired Spiritual care concerns: No Anes - Eval Final PreProcedure Day of Procedure 12/30/24 06:36 Patient weight: overweight Heart: regular rate and rhythm Lungs: clear to auscultation Airway: Mallampati scale class II Neurological: alert and oriented Last oral intake: >/= 8 hours ASA classification: III Emergent: no Anesthetic plan: proceed Anesthesia type and monitoring: general ETT and standard monitoring Results Review: All pre-operative results and documents have been reviewed as part of the pre- operative evaluation. Informed Consent: The patient's anesthetic plan and its attendant risks and benefits were discussed with the patient/family/POA. Questions were solicited and answers provided to the satisfaction of the patient/family/POA.
[2024-12-30] MEDS: ACETAMINOPHEN 500 MG TABLET 1000 MG PO (06:40)
--- NOTE | 2024-12-30 06:50 | WPDHPUPDATE1 ---
History and Physical Update Update Date/Time: 12/30/24 06:50 History and Physical has been reviewed, including an updated exam of the patient. There are NO changes in the patient's condition. Risks, benefits, and alternatives have been discussed and questions answered. Patient agrees to proceed with procedure.
[2024-12-30] MEDS: ceFAZolin 2 GM in SODIUM CHLORIDE 0.9% IV 50 ML 100 ML IVPB ×3 (07:20→22:00)
[2024-12-30] MEDS: SODIUM CHLORIDE 0.9% IV 37.7 ML, MORPHINE SULFATE INJ (*CRX) 2 MG, ROPivacaine HCL 1% 2... INFILTRATE (07:57)
--- NOTE | 2024-12-30 08:57 | W.PM.PROC2 ---
Procedure Note - Detailed Date of Procedure 12/30/24 Pre-op Diagnosis LEFT Hip Osteoarthritis Post-op Diagnosis Same Procedure Performed LEFT Total Hip arthroplasty Surgeon Anshu Torres MD Director Of Student Financial Aid [place] Anesthesia General Indications Pain and Arthritis Description of Procedure Patient was brought to the operating room #7, and an anesthetic was administered. The patient was placed with the operative Hip up and sterilely prepped and draped in the usual manner. A longitudinal incision was performed. Dissection was carried down to the fascia. A Hardinge type approach was used and the femoral head was dislocated anteriorly. The Femoral head was removed a finger breath above the lesser trochanter. The acetabulum was serially reamed to accept a 56mm component. This was impacted into place and secured with 2 25mm screws. A high wall liner was placed. The femur was reamed and broached to accept a 15 component which was impacted into place. A plus 6 head and neck were placed and the hip was put through full range of motion. The hip was noted to be stable. The wounds were then closed in a layered fashion using #5 ethibond, 2 vicryl, 2-0 vicryl and pedro. Patient left the operating room in satisfactory condition. Implants Biomet taper lock stem Brian multi hole cup Estimated Blood Loss 600 Drains No Packing No Pathology None sent Complications No immediate complications Condition Stable Disposition PACU [facility] Billing Surgery - Charge Forward: Surgery Billing (26051 Total Hip)
[2024-12-30] MEDS: fentaNYL CITRATE INJ (*CRX) 100 MCG/2 ML VIAL 25 MCG IV PUSH ×4 (09:44→10:35)
[2024-12-30] MEDS: CELECOXIB 200 MG CAPSULE PO (12:34)
[2024-12-30] MEDS: SENNA/DOCUSATE SODIUM TABLET 2 TAB PO ×2 (12:34→16:49)
[2024-12-30] MEDS: SODIUM CHLORIDE 0.9% IV 1,000 ML 125 ML IV CONT (12:35)
--- NOTE | 2024-12-30 12:54 | ADMGEN ---
This patient, Polo Alvarez, was admitted to 3 [facility] Surg Room 315-01. Patient/family oriented to hospital policies and general routines including ID bracelet, bed and alarms, visiting hours, pain management, procedures, bathroom and other care routines, personal items, smoking policy, room service/diet, and visiting hours. Information on how to activate the Rapid Response Team has been discussed. Patient/Family are encouraged to report perceived risks to care and to ask questions if they do not understand what they are told or what they should do. received report from mer.
[2024-12-30] MEDS: HYDROcodone/acetaminophen (*CRX) 10-325 MG TABLET 1 TAB PO (13:21)
[2024-12-30] MEDS: RIVAROXABAN 10 MG TABLET PO (16:49)
--- NOTE | 2024-12-30 17:37 | P.CONIM_ITS ---
Assessment and Plan Assessment and plan (1) Osteoarthritis of left hip: Qualifiers: Osteoarthritis type: primary Qualified Code(s): M16.12 - Unilateral primary osteoarthritis, left hip Code(s): M16.12 - Unilateral primary osteoarthritis, left hip Status: Acute Assessment and Plan: - ambulate with assistance and up to chair - use IS - neurovasc checks - see order for intervals - SCDs - analgesics and antiemetic p.r.n. - monitor labs in AM - CBC and BMP - bowel regimen: docusate/senna, polyethylene glycol - maintenance fluids: NS 125 mL/hr - PT/OT (2) Hypertension: Qualifiers: Hypertension type: primary hypertension Qualified Code(s): I10 - Essential (primary) hypertension Code(s): I10 - Essential (primary) hypertension Status: Acute Assessment and Plan: - chronic, currently 106/64 - hold home medications: Amlodipine, Atenolol - monitor Plan Diet: Regular GI Prophylaxis: NA DVT Prophylaxis: SCDs, Xarelto IV fluids: NS 125 mL/hour Lines/Tubes: Peripheral IV Code Status: Full code HPI Date of Consult Consult date: 12/30/24 Requesting Physician: Anshu Torres MD Primary Care Provider: HUNTER TRAPPER PHYSICIAN Consult Narrative Reason for consult: Medical Management Narrative: 69 y/o M with PMH of TI not on CPAP, HTN, and arthritis presents here for a left total hip arthroplasty. The patient presents here for surgical management of his arthritis left hip. He has had pain may a course time. He has underwent conservative treatment previously and reported last orthopedic visit that it is no longer effective. He previously underwent a total right hip arthroplasty in June 2023. He reports an uneventful recovery and he is pleased with the results. Postoperati vely he is reporting moderate pain to his surgical site, no nausea or vomiting. Reports he has been able to sit in the chair and participate in his exercises. Preop VS: 98.3? F, HR 55, R 18, 128/75, and 97% on RA. Preop workup: No leukocytosis, no anemia, creatinine 0.93 and GFR >60, A1c 5.7%. Review of Systems Review of Systems: All systems reviewed & are unremarkable except as noted in HPI and below PMFSH Past Medical History Medical History Hypertension TI (obstructive sleep apnea) Overweight Surgical History Surgical History History of right hip replacement 06/22/23 History of hernia repair History of knee replacement bilateral- Dr Torres History of rotator cuff surgery right x2 left History of surgery on lower extremity quad muscle repair- bilateral Social History Social History Smoking status: Never smoker Second hand tobacco smoke exposure: No Additional smoking assessment comments: PT DENEIJenni ALL FORMS OF TOBACCO USE Alcohol intake: current Drinks per week: 1 Alcohol use details: occasionally Substance use: never Substance use type: does not use Do You Feel Safe in your Home?: Yes Lack of Transportation: No Lack of Food: Never True Current Housing: I Have Housing Concerned About Future Housing: No Difficulty Paying Gas/Electric Bills: No Difficulty Paying for Meds: No Currently Unemployed: No Education: Bachelor's Degree Difficulty w/ Childcare or Family Care: No Living arrangements: with family Occupation/Education: retired Spiritual care concerns: No Meds Home Medications and Allergies Home Medications ?Medication ?Instructions ?Recorded ?Confirmed ?Type amlodipine 10 mg tablet 10 mg PO DAILY 11/19/24 12/30/24 History atenolol 25 mg tablet 25 mg PO DAILY 11/19/24 12/30/24 History copper 5 mg tablet 5 mg PO DAILY 12/16/24 12/16/24 History selenium 200 mcg capsule 200 mcg PO DAILY 12/16/24 12/16/24 History turmeric 400 mg capsule 400 mg PO DAILY 12/16/24 12/30/24 History vitamin B complex 1 cap PO DAILY 12/16/24 12/30/24 History vitamin E 268 mg (400 unit) capsule 268 mg PO DAILY 12/16/24 12/30/24 History zinc 50 mg tablet 50 mg PO DAILY 12/16/24 12/30/24 History Allergies Allergy/AdvReac Type Severity Reaction Status Date / Time amoxicillin (From Amoxil) AdvReac Unknown upset Verified 12/16/24 11:01 stomach Vital Signs Vital Signs - 24 hr 12/30/24 06:10 12/30/24 09:27 12/30/24 09:36 Temperature 97.2 F L 97.8 F Pulse Rate 56 L 73 65 Respiratory Rate 16 16 12 Blood Pressure 160/77 H 100/62 114/63 Pulse Oximetry 100 99 100 Oxygen Delivery Room Air Simple Face Mask Simple Face Mask Oxygen Flow Rate 8 8 12/30/24 09:45 12/30/24 10:00 12/30/24 10:15 Temperature Pulse Rate 59 L 56 L 60 Respiratory Rate 12 15 17 Blood Pressure 110/62 127/70 130/68 Pulse Oximetry 100 100 100 Oxygen Delivery Simple Face Mask Simple Face Mask Room Air Oxygen Flow Rate 8 8 12/30/24 10:30 12/30/24 10:45 12/30/24 11:00 Temperature Pulse Rate 55 L 57 L 55 L Respiratory Rate 16 16 15 Blood Pressure 124/63 123/63 123/75 Pulse Oximetry 93 98 100 Oxygen Delivery Room Air Room Air Room Air Oxygen Flow Rate 12/30/24 11:28 12/30/24 12:58 12/30/24 13:29 Temperature 97 F L 96.9 F L Pulse Rate 56 L 58 L Respiratory Rate 16 16 Blood Pressure 138/59 L 104/63 Pulse Oximetry 94 97 Oxygen Delivery Room Air Oxygen Flow Rate 12/30/24 16:58 Temperature 96.8 F L Pulse Rate 59 L Respiratory Rate 16 Blood Pressure 106/63 Pulse Oximetry 96 Oxygen Delivery Oxygen Flow Rate Exam Const: General: comfortable and no acute distress Other: , male, elderly, nontoxic appearance HENMT: Face/Nose/Sinus: Normal nares present Mouth: Yes moist mucous memb ranes Eyes: General: appearance normal, both eyes and all related structures Sclera: sclerae normal Pupils: Equal, round and reactive pupils present EOM: EOMs intact bilaterally Resp: Effort & Inspection: normal respiratory effort Auscultation: clear to auscultation bilaterally Cardio: Rate: regular rate Rhythm: regular rhythm Other: S1-S2 present without murmur, rub, ectopy GI: Other: Abdomen soft, nondistended, nontender. Normoactive bowel sounds in all quadrants. Skin: General skin exam: normal color and no rashes or lesions noted Other: Postoperative incision to left hip. Dressing is CDI. Minimal surrounding edema. Neuro: Speech: normal speech Motor exam (neuro): 5/5 motor strength present throughout Sensory Exam: normal sensation Other: A&O x4 Extrem: General: normal to inspection Psych: Mental Status: mental status grossly normal Affect: normal affect Other: Good insight and judgment, very pleasant Quality VTE Prophylaxis VTE prophylaxis: mechanical ordered and pharmacologic ordered Hospitalist MIPS Advance Care Plan I have confirmed that the patient's Advanced Care Plan is present, code status is documented, or surrogate decision maker is listed in patient medical record.: Yes Medication Reconciliation I have utilized all available resources to obtain, update and review the patients current medications (includes all prescriptions, OTC, herbals, cannabis, and nutritional supplements).: Yes
[2024-12-30] MEDS: HYDROmorphone HCL INJ (*CRX) 2 MG/ML VIAL 0.5 MG IV PUSH (18:15)
[2024-12-30] MEDS: HYDROcodone/acetaminophen (*CRX) 5-325 MG TABLET 1 TAB PO (21:58)
[2024-12-31 00:35] VITALS: BP 112/56; PULSE 52; RESP 20; TEMP 36.4; O2SAT 96
[2024-12-31 04:58] VITALS: BP 112/61; PULSE 58; RESP 18; TEMP 36.7; O2SAT 96
[2024-12-31] MEDS: HYDROcodone/acetaminophen (*CRX) 5-325 MG TABLET 1 TAB PO (06:04)
[2024-12-31] MEDS: ceFAZolin 2 GM in SODIUM CHLORIDE 0.9% IV 50 ML 100 ML IVPB (06:05)
[2024-12-31 06:08] LABS: Hematocrit 36.5 % (42.0-52.0); Hemoglobin 11.9 g/dL (14.0-18.0); Immature Granulocyte Percent A 0.2 % (0-0.5); Lymphocytes Absolute Auto 1.01 K/mm3 (0.9-3.2); Mean Corpuscular HGB Conc 32.6 g/dl (32-36); Mean Corpuscular Hemoglobin 30.9 pg (26-34); Mean Corpuscular Volume 94.8 fl (80-100); Nucleated Red Blood Cells Absolute Auto 0.000 K/mm3 (0.0-0.012); Nucleated Red Blood Cells Perc 0.0 % (0.0-0.2); Platelet Count Result 163 k/mm3 (150-375); Red Blood Count 3.85 M/mm3 (4.6-6.20); White Blood Count 8.5 K/mm3 (4.5-10.0)
[2024-12-31 06:20] LABS: Anion Gap 3 mmol/L (4-12); Blood Urea Nitrogen 14 mg/dL (9-20); Calcium 9.0 mg/dL (8.4-10.2); Carbon Dioxide 26 mmol/L (22-30); Chloride 107 mmol/L (98-107); Estimated CRCL calculation 98 ml/min; Estimated Glomerular Filt Rate > 60; Glucose 109 mg/dL (65-110); Potassium 3.9 mmol/L (3.4-5.0); Sodium 136 mmol/L (137-145)
[2024-12-31] MEDS: SENNA/DOCUSATE SODIUM TABLET 2 TAB PO (08:32)
[2024-12-31] MEDS: CELECOXIB 200 MG CAPSULE PO (08:32)
[2024-12-31 08:58] VITALS: BP 104/61; PULSE 68; RESP 18; TEMP 36.6; O2SAT 97
[2024-12-31] MEDS: HYDROcodone/acetaminophen (*CRX) 10-325 MG TABLET 1 TAB PO (09:55)
--- NOTE | 2024-12-31 10:38 | WPDANESPN ---
Anes - Prog Note Post-Op Date/Time: 12/31/24 10:38 Cardiovascular status: normal Respiratory status: normal Airway patency: baseline Mental status: baseline Vital Signs: Last Vital Signs Temp 36.6 C 12/31/24 08:58 Pulse 68 12/31/24 08:58 Resp 18 12/31/24 08:58 BP 104/61 12/31/24 08:58 Pulse Ox 97 12/31/24 08:58 O2 Del Method Room Air 12/31/24 08:00 O2 Flow Rate 8 12/30/24 10:00 Pain Score (VAS): 2 I/O: Intake & Output 12/30/24 12/31/24 12/31/24 23:59 07:59 15:59 Intake Total 530 600 360 Output Total 500 Balance 530 100 360 Laboratory Tests 12/31/24 05:24 12/31/24 05:24 12/31/24 05:24 WBC 8.5 RBC 3.85 L Hgb 11.9 L Hct 36.5 L MCV 94.8 MCH 30.9 MCHC 32.6 RDW 12.9 Plt Count 163 MPV 10.7 H Immature Gran % (Auto) 0.2 Neut % (Auto) 78.9 H Lymph % (Auto) 11.9 L Placer % (Auto) 7.9 Eos % (Auto) 0.6 Baso % (Auto) 0.5 Lymph # (Auto) 1.01 Placer # (Auto) 0.7 H Eos # (Auto) 0.1 Baso # (Auto) 0.0 Abs Immat Gran (auto) 0.02 Absolute Neuts (auto) 6.7 Absolute Nucleated RBC 0.000 Nucleated RBC % 0.0 Sodium 136 L Potassium 3.9 Chloride 107 Carbon Dioxide 26 Anion Gap 3 L BUN 14 Creatinine 0.77 Estim Creat Clear Calc 98 Estimated GFR > 60 Glucose 109 Calcium 9.0 Patient Feedback: Patient satisfied with anesthetic care.
[2024-12-31] MEDS: RIVAROXABAN 10 MG TABLET PO (12:59)
== END 2024-12-31 13:05 | disposition home or self-care (01) ==
LOC: ANHSURGERY 06:02 → ANH3MEDSUR 11:19
PROVIDERS: Visit Provider Orthopaedic Surgery
PROC: (CPT 27130; principal; 2024-12-30 07:30)
DX: M16.12 Unilateral primary osteoarthritis, left hip (principal); I10 Essential (primary) hypertension; G47.33 Obstructive sleep apnea (adult) (pediatric)
CPT/HCPCS: 27130; 36415; 80048; 85025; 86850; 86900; 86901; 97110; 97116; 97161; 97165; 97530; 97535; 99199; J0690; A9270; C1776; J0166; J1100; J1171; J1885; J2003; J2270; J2405; J2704; J2795; J3010; J3373; J7030; J7120